=== PATIENT | male | born 1935 | race Caucasian/White ===

== ENCOUNTER 2022-11-09 16:44 | Emergency (ER) | payer OTHER ==
--- OUTSIDE RECORDS SUMMARY | 2022-11-09 16:50 | XMS REPORT | Continuity of Care Document ---
:1935 Author Organization [facility] t Address [address] [place] [address] Care Team Providers Name Role Phone Henrik Delgado Attending Clinician Only, Adc Test Attending Clinician Unavailable Karissa Moss MD Attending Clinician KARISSA MOSS Attending Clinician Unavailable Doctor Unassigned, [place] Attending Clinician Unavailable Payers Payer Name Policy Type Policy Number Effective Date Expiration Date S ource COVID VACCINE [id number] 2020-10-30 00:00:00 ADMIN / TESTING Problems Condition Condition Condition Status Onset Resolution Last Treating Co mments Source Name Details Category Date Date Treatment Clinician Date Amnesia Amnesia Problem Active 2022-08-16 Me moria (finding) (finding) 04:28:53 l Active [place] Problem 08/16/2022 [facility] Dementia Dementia Problem Active 2022-08-16 Memoria (disorder) (disorder) 04:28:53 l Active [place] Problem 08/16/2022 [facility] 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) Active Problem 08/16/2022 [facility] Foot-drop Foot-drop Problem Active 2022-08-16 Memoria (finding) (finding) 04:28:53 l Active [place] Problem 08/16/2022 [facility] Allergies, Adverse Reactions, Alerts Allergy Allergy Status Severity Reaction(s) Onset Inactive Treating Comm ents Source Name Type Date Date Clinician NO KNOWN Drug Active [facility] Social History Social Habit Start Date Stop Date Quantity Comments Source Exposure to Not sure [facility] SARS-CoV-2 (event) [facility] Sex Assigned At [birth year] [facility] 00:00:00 00:00:00 Center Smoking Status Start Date Stop Date Source Unknown if ever smoked [facility] Tobacco smoking status 2022-08-13 19:19:14 Mem[facility] [place] Medications Ordered Filled Start Stop Current Ordering Indication Dosage Frequency Signature Comments Components Source Medication Medication Date Date Medication? Clinician (SIG) Name Name donepezil Yes = 1 tab, Jan sri 10 mg oral 7-12 PO, l tablet 20:52: Bedtime, # July nn 00 90 tab, 2 Refill(s), Pharmacy: [facility], 180.34, cm, 04/21/22 15:32:00 CDT, Height, 93.182, kg, 04/21/22 15:32:00 CDT, Weight donepezil Yes = 1 tab, Jan sri 10 mg oral 7-12 PO, l tablet 20:52: Bedtime, # July nn 00 90 tab, 2 Refill(s), Pharmacy: [facility], 180.34, cm, 04/21/22 15:32:00 CDT, Height, 93.182, kg, 04/21/22 15:32:00 CDT, Weight donepezil Yes = 1 tab, Jan sri 10 mg oral 7-12 PO, l tablet 20:52: Bedtime, # July nn 00 90 tab, 2 Refill(s), Pharmacy: [facility], 180.34, cm, 04/21/22 15:32:00 CDT, Height, 93.182, kg, 04/21/22 15:32:00 CDT, Weight donepezil Yes = 1 tab, Jan sri 10 mg oral 7-12 PO, l tablet 20:52: Bedtime, # July nn 00 90 tab, 2 Refill(s), Pharmacy: [facility], 180.34, cm, 04/21/22 15:32:00 CDT, Height, 93.182, kg, 04/21/22 15:32:00 CDT, Weight donepezil 2021-0 Yes = 1 tab, Jan sri 10 mg oral 7-12 PO, l tablet 20:52: Bedtime, # July nn 00 90 tab, 2 Refill(s), Pharmacy: [facility], 180.34, cm, 04/21/22 15:32:00 CDT, Height, 93.182, kg, 04/21/22 15:32:00 CDT, Weight donepezil 2021-0 Yes = 1 tab, Jan sri 10 mg oral 7-12 PO, l tablet 20:52: Bedtime, # July nn 00 90 tab, 2 Refill(s), Pharmacy: [facility], 180.34, cm, 04/21/22 15:32:00 CDT, Height, 93.182, kg, 04/21/22 15:32:00 CDT, Weight donepezil 2021-0 Yes = 1 tab, Jan sri 10 mg oral 4-12 PO, l tablet 19:47: Bedtime, # July nn 00 90 tab, 2 Refill(s), Pharmacy: [id number], 180.34, cm, 01/20/22 14:13:00 CDT, Height, 91.364, kg, 01/20/22 14:13:00 CDT, Weight donepezil 2021-0 Yes = 1 tab, Jan sri 10 mg oral 4-12 PO, l tablet 19:47: Bedtime, # July nn 00 90 tab, 2 Refill(s), Pharmacy: [id number], 180.34, cm, 01/20/22 14:13:00 CDT, Height, 91.364, kg, 01/20/22 14:13:00 CDT, Weight donepezil 2021-0 Yes = 1 tab, Jan sri 10 mg oral 4-12 PO, l tablet 19:47: Bedtime, # July nn 00 90 tab, 2 Refill(s), Pharmacy: [id number], 180.34, cm, 01/20/22 14:13:00 CDT, Height, 91.364, kg, 01/20/22 14:13:00 CDT, Weight donepezil 2021-0 Yes = 1 tab, Jan sri 10 mg oral 4-12 PO, l tablet 19:47: Bedtime, # July nn 00 90 tab, 2 Refill(s), Pharmacy: [id number], 180.34, cm, 01/20/22 14:13:00 CDT, Height, 91.364, kg, 01/20/22 14:13:00 CDT, Weight donepezil 2021-0 Yes = 1 tab, Jan sri 10 mg oral 4-12 PO, l tablet 19:47: Bedtime, # July nn 00 90 tab, 2 Refill(s), Pharmacy: [id number], 180.34, cm, 01/20/22 14:13:00 CDT, Height, 91.364, kg, 01/20/22 14:13:00 CDT, Weight donepezil 2021-0 Yes = 1 tab, Jan sri 10 mg oral 4-12 PO, l tablet 19:47: Bedtime, # July nn 00 90 tab, 2 Refill(s), Pharmacy: [id number], 180.34, cm, 01/20/22 14:13:00 CDT, Height, 91.364, kg, 01/20/22 14:13:00 CDT, Weight allopurinol 2021-0 Yes 0 Memori a 100 mg oral 4-12 Refill(s) l tablet 19:36: [place] 00 losartan 25 2021-0 Yes TAKE 1 Jan sri mg oral 4-12 TABLET BY l tablet 19:36: MOUTH [place] 00 EVERY DAY allopurinol 2021-0 Yes 0 Memori a 100 mg oral 4-12 Refill(s) l tablet 19:36: [place] 00 losartan 25 2021-0 Yes TAKE 1 Jan sri mg oral 4-12 TABLET BY l tablet 19:36: MOUTH [place] 00 EVERY DAY allopurinol 2021-0 Yes 0 Memori a 100 mg oral 4-12 Refill(s) l tablet 19:36: [place] 00 losartan 25 0 Yes TAKE 1 Jan sri mg oral 4-12 TABLET BY l tablet 19:36: MOUTH EVERY DAY allopurinol 0 Yes 0 Memori a 100 mg oral 4-12 Refill(s) l tablet 19:36: [place] 00 losartan 25 0 Yes TAKE 1 Jan sri mg oral 4-12 TABLET BY l tablet 19:36: MOUTH EVERY DAY allopurinol 0 Yes 0 Memori a 100 mg oral 4-12 Refill(s) l tablet 19:36: [place] 00 losartan 25 0 Yes TAKE 1 Jan sri mg oral 4-12 TABLET BY l tablet 19:36: MOUTH EVERY DAY allopurinol 0 Yes 0 Memori a 100 mg oral 4-12 Refill(s) l tablet 19:36: [place] 00 losartan 25 0 Yes TAKE 1 Jan sri mg oral 4-12 TABLET BY l tablet 19:36: MOUTH EVERY DAY lisinopril 2021-0 Yes 2.5 mg = 1 M emoria 2.5 mg oral 1-12 tab, PO, l tablet 19:49: Daily, # 00 30 tab, 0 Refill(s) lisinopril 2021-0 Yes 2.5 mg = 1 M emoria 2.5 mg oral 1-12 tab, PO, l tablet 19:49: Daily, # 00 30 tab, 0 Refill(s) lisinopril 2021-0 Yes 2.5 mg = 1 M emoria 2.5 mg oral 1-12 tab, PO, l tablet 19:49: Daily, # 00 30 tab, 0 Refill(s) lisinopril 2021-0 Yes 2.5 mg = 1 M emoria 2.5 mg oral 1-12 tab, PO, l tablet 19:49: Daily, # 30 tab, 0 Refill(s) lisinopril 2021-0 Yes 2.5 mg = 1 M emoria 2.5 mg oral 1-12 tab, PO, l tablet 19:49: Daily, # 30 tab, 0 Refill(s) lisinopril 2021-0 Yes 2.5 mg = 1 M emoria 2.5 mg oral 1-12 tab, PO, l tablet 19:49: Daily, # [place] 00 30 tab, 0 Refill(s) donepezil 2020-0 Yes 10 mg = 1 Mem oria 10 mg oral 2-06 tab, PO, l tablet 18:21: Bedtime, # July nn 00 90 tab, 2 Refill(s), Pharmacy: [id number] donepezil 2020-0 Yes 10 mg = 1 Mem oria 10 mg oral 2-06 tab, PO, l tablet 18:21: Bedtime, # July nn 00 90 tab, 2 Refill(s), Pharmacy: [id number] donepezil 2020-0 Yes 10 mg = 1 Mem oria 10 mg oral 2-06 tab, PO, l tablet 18:21: Bedtime, # July nn 00 90 tab, 2 Refill(s), Pharmacy: [facility] #[id number] donepezil 2020-0 Yes 10 mg = 1 Mem oria 10 mg oral 2-06 tab, PO, l tablet 18:21: Bedtime, # July nn 00 90 tab, 2 Refill(s), Pharmacy: [id number] donepezil 2020-0 Yes 10 mg = 1 Mem oria 10 mg oral 2-06 tab, PO, l tablet 18:21: Bedtime, # July nn 00 90 tab, 2 Refill(s), Pharmacy: [id number] donepezil 2020-0 Yes 10 mg = 1 Mem oria 10 mg oral 2-06 tab, PO, l tablet 18:21: Bedtime, # July nn 00 90 tab, 2 Refill(s), Pharmacy: [id number] aspirin 81 2018-0 Yes 81 mg = 1 Me moria mg tablet, 4-24 tab, PO, l enteric 14:38: Daily, # Grey n coated 00 90 tab, 3 Refill(s) metoprolol 2018-0 Yes 25 mg = 1 Me moria 25 mg oral 4-24 tab, PO, l tablet, 14:38: BID, # 30 July nn extended 00 tab, 0 release Refill(s) metFORMIN 2018-0 Yes 500 mg = 1 Me moria 500 mg oral 4-24 tab, PO, l tablet 14:38: Daily, 0 [place] 00 Refill(s) atorvastati Yes See Memori a n 40 mg 4-24 Instructio l oral tablet 14:38: ns, 1/2 Her albright 00 tab PO Bedtime, 0 Refill(s) citalopram 2017-0 Yes See Memoria 20 mg oral 4-24 Instructio l tablet 14:38: ns, 1/2 [place] 00 tab PO Daily, 0 Refill(s) tamsulosin Yes 0.4 mg = 1 M emoria 0.4 mg oral 4-24 cap, PO, l capsule 14:38: Daily, # Grey n 00 30 cap, 0 Refill(s) finasteride Yes 5 mg = 1 Me moria 5 mg oral 4-24 tab, PO, l tablet 14:38: Daily, # [place] 00 30 tab, 0 Refill(s) aspirin 81 2018-0 Yes 81 mg = 1 Me moria mg tablet, 4-24 tab, PO, l enteric 14:38: Daily, # Grey n coated 00 90 tab, 3 Refill(s) metoprolol Yes 25 mg = 1 Me moria 25 mg oral 4-24 tab, PO, l tablet, 14:38: BID, # 30 July nn extended 00 tab, 0 release Refill(s) metFORMIN Yes 500 mg = 1 Me moria 500 mg oral 4-24 tab, PO, l tablet 14:38: Daily, 0 [place] 00 Refill(s) atorvastati 2017- Yes See Memori a n 40 mg 4-24 Instructio l oral tablet 14:38: ns, 1/2 Her albright 00 tab PO Bedtime, 0 Refill(s) citalopram 2017- Yes See Memoria 20 mg oral 4-24 Instructio l tablet 14:38: ns, 1/2 [place] 00 tab PO Daily, 0 Refill(s) tamsulosin 2017-0 Yes 0.4 mg = 1 M emoria 0.4 mg oral 4-24 cap, PO, l capsule 14:38: Daily, # Grey n 00 30 cap, 0 Refill(s) finasteride 2017-0 Yes 5 mg = 1 Me moria 5 mg oral 4-24 tab, PO, l tablet 14:38: Daily, # [place] 00 30 tab, 0 Refill(s) aspirin 81 2018 Yes 81 mg = 1 Me moria mg tablet, 4-24 tab, PO, l enteric 14:38: Daily, # Grey n coated 00 90 tab, 3 Refill(s) metoprolol Yes 25 mg = 1 Me moria 25 mg oral 4-24 tab, PO, l tablet, 14:38: BID, # 30 July nn extended 00 tab, 0 release Refill(s) metFORMIN Yes 500 mg = 1 Me moria 500 mg oral 4-24 tab, PO, l tablet 14:38: Daily, 0 [place] 00 Refill(s) atorvastati Yes See Memori a n 40 mg 4-24 Instructio l oral tablet 14:38: ns, 1/2 Her albright 00 tab PO Bedtime, 0 Refill(s) citalopram Yes See Memoria 20 mg oral 4-24 Instructio l tablet 14:38: ns, 10/12 [place] 00 tab PO Daily, 0 Refill(s) tamsulosin Yes 0.4 mg = 1 M emoria 0.4 mg oral 4-24 cap, PO, l capsule 14:38: Daily, # Grey n 00 30 cap, 0 Refill(s) finasteride Yes 5 mg = 1 Me moria 5 mg oral 4-24 tab, PO, l tablet 14:38: Daily, # [place] 00 30 tab, 0 Refill(s) aspirin 81 2018 Yes 81 mg = 1 Me moria mg tablet, 4-24 tab, PO, l enteric 14:38: Daily, # Grey n coated 00 90 tab, 3 Refill(s) metoprolol Yes 25 mg = 1 Me moria 25 mg oral 4-24 tab, PO, l tablet, 14:38: BID, # 30 July nn extended 00 tab, 0 release Refill(s) metFORMIN Yes 500 mg = 1 Me moria 500 mg oral 4-24 tab, PO, l tablet 14:38: Daily, 0 [place] 00 Refill(s) atorvastati Yes See Memori a n 40 mg 4-24 Instructio l oral tablet 14:38: ns, 1/2 Her albright 00 tab PO Bedtime, 0 Refill(s) citalopram 2017-0 Yes See Memoria 20 mg oral 4-24 Instructio l tablet 14:38: ns, 1/2 [place] 00 tab PO Daily, 0 Refill(s) tamsulosin 2017- Yes 0.4 mg = 1 M emoria 0.4 mg oral 4-24 cap, PO, l capsule 14:38: Daily, # Grey n 00 30 cap, 0 Refill(s) finasteride Yes 5 mg = 1 Me moria 5 mg oral 4-24 tab, PO, l tablet 14:38: Daily, # [place] 00 30 tab, 0 Refill(s) aspirin 81 0 Yes 81 mg = 1 Me moria mg tablet, 4-24 tab, PO, l enteric 14:38: Daily, # Grey n coated 00 90 tab, 3 Refill(s) metoprolol Yes 25 mg = 1 Me moria 25 mg oral 4-24 tab, PO, l tablet, 14:38: BID, # 30 July nn extended 00 tab, 0 release Refill(s) metFORMIN Yes 500 mg = 1 Me moria 500 mg oral 4-24 tab, PO, l tablet 14:38: Daily, 0 [place] 00 Refill(s) atorvastati 0 Yes See Memori a n 40 mg 4-24 Instructio l oral tablet 14:38: ns, 1/2 Her albright 00 tab PO Bedtime, 0 Refill(s) citalopram 2017-0 Yes See Memoria 20 mg oral 4-24 Instructio l tablet 14:38: ns, 1/2 [place] 00 tab PO Daily, 0 Refill(s) tamsulosin 2018-0 Yes 0.4 mg = 1 M emoria 0.4 mg oral 4-24 cap, PO, l capsule 14:38: Daily, # Grey n 00 30 cap, 0 Refill(s) finasteride 2017- Yes 5 mg = 1 Me moria 5 mg oral 4-24 tab, PO, l tablet 14:38: Daily, # [place] 00 30 tab, 0 Refill(s) aspirin 81 0 Yes 81 mg = 1 Me moria mg tablet, 4-24 tab, PO, l enteric 14:38: Daily, # Grey n coated 00 90 tab, 3 Refill(s) metoprolol Yes 25 mg = 1 Me moria 25 mg oral 4-24 tab, PO, l tablet, 14:38: BID, # 30 July nn extended 00 tab, 0 release Refill(s) metFORMIN Yes 500 mg = 1 Me moria 500 mg oral 4-24 tab, PO, l tablet 14:38: Daily, 0 [place] 00 Refill(s) atorvastati Yes See Memori a n 40 mg 4-24 Instructio l oral tablet 14:38: ns, 2 Her albright 00 tab PO Bedtime, 0 Refill(s) citalopram Yes See Memoria 20 mg oral 4-24 Instructio l tablet 14:38: ns, 10/12 [place] 00 tab PO Daily, 0 Refill(s) tamsulosin Yes 0.4 mg = 1 M emoria 0.4 mg oral 4-24 cap, PO, l capsule 14:38: Daily, # Grey n 00 30 cap, 0 Refill(s) finasteride Yes 5 mg = 1 Me moria 5 mg oral 4-24 tab, PO, l tablet 14:38: Daily, # [place] 00 30 tab, 0 Refill(s) Immunizations Ordered Immunization Filled Immunization Date Status Commen ts Source Name Name Covid-19 Vaccine 2020-11-[address] [facility] MRNA (PF) 12yr+ 00:00:00 Medical C enter (Pfizer/BioNTech)(IM M601) Covid-19 Vaccine 2020-11-[address] [facility] MRNA (PF) 12yr+ 00:00:00 Medical C enter (Pfizer/BioNTech)(IM M601) Covid-19 Vaccine 2020-11-[address] [facility] MRNA (PF) 12yr+ 00:00:00 Medical C enter (Pfizer/BioNTech)(IM M601) Covid-19 Vaccine 2020-11-[address] [facility] MRNA (PF) 12yr+ 00:00:00 Medical C enter (Pfizer/BioNTech)(IM M601) Covid-19 Vaccine 2020-11-[address] [facility] MRNA (PF) 12yr+ 00:00:00 Medical C enter (Pfizer/BioNTech)(IM M601) Covid-19 Vaccine 2020-11-[address] [facility] MRNA (PF) 12yr+ 00:00:00 Medical C enter (Pfizer/BioNTech)(IM M601) Covid-19 Vaccine 2020-11-[address] [facility] M[facility] (PF) 12yr+ 00:00:00 Medical C enter (Pfizer/BioNTech)(IM M601) Covid-19 Vaccine 2020-10-[address] [facility] MRNA (PF) 12yr+ 00:00:00 Medical C enter (Pfizer/BioNTech)(IM M601) Covid-19 Vaccine 2020-10-[address] [facility] MRNA (PF) 12yr+ 00:00:00 Medical C enter (Pfizer/BioNTech)(IM M601) Covid-19 Vaccine 2020-10-[address] [facility] M[facility] (PF) 12yr+ 00:00:00 Medical C enter (Pfizer/BioNTech)(IM M601) Covid-19 Vaccine 2020-10-[address] [facility] MRNA (PF) 12yr+ 00:00:00 Medical C enter (Pfizer/BioNTech)(IM M601) Covid-19 Vaccine 2020-10-[address] [facility] M[facility] (PF) 12yr+ 00:00:00 Medical C enter (Pfizer/BioNTech)(IM M601) Covid-19 Vaccine 2020-10-[address] [facility] M[facility] (PF) 12yr+ 00:00:00 Medical C enter (Pfizer/BioNTech)(IM M601) Covid-19 Vaccine 2020-10-[address] [facility] (PF) 12yr+ 00:00:00 Medical C enter (Pfizer/BioNTech)(IM M601) Vital Signs Vital Name Observation Time Observation Value Comments Source Systolic (mm Hg) 2022-08-13 19:18:00 Jan rial [place] Diastolic (mm Hg) 2022-08-13 19:18:00 Mem orial [place] Heart Rate 2022-08-13 19:18:00 [facility] [place] Height 2022-08-13 19:18:00 5 [ft_i] [facility] [place] Weight 2022-08-13 19:18:00 [facility] [place] BMI Calculated 2022-08-13 19:18:00 Memori al [place] Systolic (mm Hg) 2022-04-21 20:18:00 Jan rial [place] Diastolic (mm Hg) 2022-04-21 20:18:00 Mem orial [place] Heart Rate 2022-04-21 20:18:00 [facility] [place] Respitory Rate 2022-04-21 20:18:00 [facility] [place] Height 2022-04-21 20:18:00 180.34 cm [facility] [place] Weight 2022-04-21 20:18:00 [facility] [place] BMI Calculated 2022-04-21 20:18:00 Mem[facility] [place] Systolic (mm Hg) 2022-01-20 19:13:00 Jan rial [place] Diastolic (mm Hg) 2022-01-20 19:13:00 Mem orial [place] Heart Rate 2022-01-20 19:13:00 [facility] [place] Respitory Rate 2022-01-20 19:13:00 Memori al [place] Height 2022-01-20 19:13:00 180.34 cm [facility] [place] Weight 2022-01-20 19:13:00 [facility] [place] BMI Calculated 2022-01-20 19:13:00 [facility] [place] Systolic (mm Hg) 2021-10-22 19:27:00 Jan rial [place] Diastolic (mm Hg) 2021-10-22 19:27:00 Mem orial [place] Heart Rate 2021-10-22 19:27:00 [facility] [place] Respitory Rate 2021-10-22 19:27:00 [facility] [place] Weight 2021-10-22 19:27:00 [facility] [place] Systolic (mm Hg) 2021-06-18 19:41:00 Jan rial [place] Diastolic (mm Hg) 2021-06-18 19:41:00 Mem orial [place] Heart Rate 2021-06-18 19:41:00 [facility] [place] Respitory Rate 2021-06-18 19:41:00 [facility] [place] Height 2021-06-18 19:41:00 180.34 cm [facility] [place] Weight 2021-06-18 19:41:00 [facility] [place] BMI Calculated 2021-06-18 19:41:00 [facility] [place] Systolic (mm Hg) 2021-03-18 18:44:00 Jan rial [place] Diastolic (mm Hg) 2021-03-18 18:44:00 Mem orial [place] Heart Rate 2021-03-18 18:44:00 [facility] [place] Respitory Rate 2021-03-18 18:44:00 Mem[facility] [place] Height 2021-03-18 18:44:00 180.34 cm [facility] [place] Weight 2021-03-18 18:44:00 [facility] [place] BMI Calculated 2021-03-18 18:44:00 [facility] [place] Systolic (mm Hg) 2020-09-17 19:44:00 Jan rial [place] Diastolic (mm Hg) 2020-09-17 19:44:00 Mem orial [place] Heart Rate 2020-09-17 19:44:00 [facility] [place] Respitory Rate 2020-09-17 19:44:00 Mem[facility] al [place] Height 2020-09-17 19:44:00 182.88 cm [facility] [place] Weight 2020-09-17 19:44:00 [facility] [place] BMI Calculated 2020-09-17 19:44:00 [facility] al [place] Systolic (mm Hg) 2020-06-18 19:19:00 Jan rial [place] Diastolic (mm Hg) 2020-06-18 19:19:00 Mem orial [place] Heart Rate 2020-06-18 19:19:00 [facility] [place] Respitory Rate 2020-06-18 19:19:00 [facility] al [place] Height 2020-06-18 19:19:00 180.34 cm [facility] [place] Weight 2020-06-18 19:19:00 [facility] [place] BMI Calculated 2020-06-18 19:19:00 [facility] [place] Systolic (mm Hg) 2019-11-16 17:38:00 Jan rial [place] Diastolic (mm Hg) 2019-11-16 17:38:00 Mem orial [place] Heart Rate 2019-11-16 17:38:00 [facility] [place] Respitory Rate 2019-11-16 17:38:00 Memori al [place] Height 2019-11-16 17:38:00 182.88 cm [facility] [place] Weight 2019-11-16 17:38:00 Seamus Coker BMI Calculated 2019-11-16 17:38:00 Kaitlin rosa [place] Weight 2018-07-29 15:28:00 Seamus Coker Height 2018-07-29 15:28:00 180.34 cm [facility] [place] Heart Rate 2018-07-29 15:28:00 Seamus Amosann Systolic (mm Hg) 2018-07-29 15:28:00 Jan Amosann Diastolic (mm Hg) 2018-07-29 15:28:00 Annmarie Coker BMI Calculated 2018-07-29 15:28:00 Kaitlin moe [place] Procedures Procedure Date / Time Performed Performing Clinician Sour e CONSENT/REFUSAL FOR 2021-03-31 15:54:31 Doctor Unassigned, No Un [facility] DIAGNOSIS AND Name Medical [facility] TREATMENT Plan of Care Planned Activity Planned Date Details Comments Source Future Scheduled 2022-10-11 FALLS RISK SCREENING [facility] Test 00:00:00 [code = FALLS RISK Medical C enter SCREENING] Future Scheduled 2022-10-[address] [facility] Test 00:00:00 (12+) [code = Medical Center DEPRESSION SCREENING (12+)] Future Scheduled 2022-10-[address] [facility] Test 00:00:00 (12+) [code = Medical Center DEPRESSION SCREENING (12+)] Future Scheduled 2022-10-11 FALLS RISK SCREENING [facility] Test 00:00:00 [code = FALLS RISK Medical C enter SCREENING] Future Scheduled 2022-10-[address] [facility] Test 00:00:00 (12+) [code = Medical Center DEPRESSION SCREENING (12+)] Future Scheduled 2022-10-11 FALLS RISK SCREENING [facility] 00:00:00 [code = FALLS RISK Medical C enter SCREENING] Future Scheduled 2022-06-11 INFLUENZA VACCINE (#1) [facility] 00:00:00 [code = INFLUENZA Medical Ce nter VACCINE (#1)] Future Scheduled 2022-06-11 INFLUENZA VACCINE (#1) [facility] 00:00:00 [code = INFLUENZA Medical Ce nter VACCINE (#1)] Future Scheduled 2022-06-11 INFLUENZA VACCINE (#1) [facility] 00:00:00 [code = INFLUENZA Medical Ce nter VACCINE (#1)] Future Scheduled 2022-06-11 INFLUENZA VACCINE (#1) [facility] 00:00:00 [code = INFLUENZA Medical Ce nter VACCINE (#1)] Future Scheduled 2022-06-11 INFLUENZA VACCINE (#1) [facility] 00:00:00 [code = INFLUENZA Medical Ce nter VACCINE (#1)] Future Scheduled 2022-06-11 INFLUENZA VACCINE (#1) [facility] 00:00:00 [code = INFLUENZA Medical Ce nter VACCINE (#1)] Future Scheduled 2022-06-11 INFLUENZA VACCINE (#1) [facility] 00:00:00 [code = INFLUENZA Medical Ce nter VACCINE (#1)] Future Scheduled 2021-10-[address] [facility] Test 00:00:00 (12+) [code = Medical Center DEPRESSION SCREENING (12+)] Future Scheduled 2021-10-11 FALLS RISK SCREENING [facility] Test 00:00:00 [code = FALLS RISK Medical C enter SCREENING] Future Scheduled 2021-10-[address] [facility] Test 00:00:00 (12+) [code = Medical Center DEPRESSION SCREENING (12+)] Future Scheduled 2021-10-11 FALLS RISK SCREENING [facility] Test 00:00:00 [code = FALLS RISK Medical C enter SCREENING] Future Scheduled 2021-10-[address] [facility] Test 00:00:00 (12+) [code = Medical Center DEPRESSION SCREENING (12+)] Future Scheduled 2021-10-11 FALLS RISK SCREENING [facility] 00:00:00 [code = FALLS RISK Medical C enter SCREENING] Future Scheduled 2021-10-[address] [facility] Test 00:00:00 (12+) [code = Medical Center DEPRESSION SCREENING (12+)] Future Scheduled 2021-10-11 FALLS RISK SCREENING [facility] 00:00:00 [code = FALLS RISK Medical C enter SCREENING] Future Scheduled 2021-04-19 COVID-19 VACCINE (3 - [facility]00 Booster for Pfizer Medical C enter series) [code = COVID-19 VACCINE (3 - Booster for Pfizer series)] Future Scheduled 2021-04-19 COVID-19 VACCINE (3 - [facility] 00:00:00 Booster for Pfizer Medical C enter series) [code = COVID-19 VACCINE (3 - Booster for Pfizer series)] Future Scheduled 2021-04-19 COVID-19 VACCINE (3 - [facility] 00:00:00 Booster for Pfizer Medical C enter series) [code = COVID-19 VACCINE (3 - Booster for Pfizer series)] Future Scheduled 2021-04-19 COVID-19 VACCINE (3 - [facility] 00:00:00 Booster for Pfizer Medical C enter series) [code = COVID-19 VACCINE (3 - Booster for Pfizer series)] Future Scheduled 2021-04-19 COVID-19 VACCINE (3 - [facility] 00:00:00 Booster for Pfizer Medical C enter series) [code = COVID-19 VACCINE (3 - Booster for Pfizer series)] Future Scheduled 2021-04-19 COVID-19 VACCINE (3 - [facility] 00:00:00 Booster for Pfizer Medical C enter series) [code = COVID-19 VACCINE (3 - Booster for Pfizer series)] Future Scheduled 2021-04-19 COVID-19 VACCINE (3 - [facility] 00:00:00 Booster for Pfizer Medical C enter series) [code = COVID-19 VACCINE (3 - Booster for Pfizer series)] Future Scheduled 2002 PNEUMOCOCCAL 65+ [facility] 00:00:00 (1 - PCV) [code = Medical Ce nter PNEUMOCOCCAL 65+ YRS (1 - PCV)] Future Scheduled 2002 PNEUMOCOCCAL 65+ Y[facility] 00:00:00 (1 - PCV) [code = Medical Ce nter PNEUMOCOCCAL 65+ YRS (1 - PCV)] Future Scheduled 2002 PNEUMOCOCCAL 65+ YRS [facility] 00:00:00 (1 - PCV) [code = Medical Ce nter PNEUMOCOCCAL 65+ YRS (1 - PCV)] Future Scheduled 2002 PNEUMOCOCCAL 65+ YRS [facility] 00:00:00 (1 - PCV) [code = Medical Ce nter PNEUMOCOCCAL 65+ YRS (1 - PCV)] Future Scheduled 2002 PNEUMOCOCCAL 65+ YRS [facility] 00:00:00 (1 - PCV) [code = Medical Ce nter PNEUMOCOCCAL 65+ YRS (1 - PCV)] Future Scheduled 2002 PNEUMOCOCCAL 65+ Y[facility] 00:00:00 (1 - PCV) [code = Medical Ce nter PNEUMOCOCCAL 65+ YRS (1 - PCV)] Future Scheduled 2002 PNEUMOCOCCAL 65+ Y[facility] 00:00:00 (1 - PCV) [code = Medical Ce nter PNEUMOCOCCAL 65+ YRS (1 - PCV)] Future Scheduled 1987 SHINGLES VACCINES ([address] [facility] 00:00:00 of 2) [code = [facility] VACC[facility]ES (1 of 2)] Future Scheduled 1987 SHINGLES VACCINES ([address] [facility] 00:00:00 of 2) [code = [facility] VACCINES (1 of 2)] Future Scheduled 1987 SHINGLES VACCINES ([address] [facility] Test 00:00:00 of 2) [code [facility] (1 of 2)] Future Scheduled 1987 SHINGLES VACCINES ([address] [facility] Test 00:00:00 of 2) [code = [facility] VACCINES (1 of 2)] Future Scheduled 1987 SHINGLES VACCINES ([address] [facility] Test 00:00:00 of 2) [code = [facility] VACCINES (1 of 2)] Future Scheduled 1987 SHINGLES VACCINES ([address] [facility] Test 00:00:00 of 2) [code = [facility] VACCINES (1 of 2)] Future Scheduled 1987 SHINGLES VACCINES ([address] [facility] Test 00:00:00 of 2) [code = [facility] VACCINES (1 of 2)] Future Scheduled 1954-02-29 DTAP/TDAP/TD VACCINES [facility] Test 00:00:00 (1 - Tdap) [code = Medical C enter DTAP/TDAP/TD VACCINES (1 - Tdap)] Future Scheduled 1954-02-29 DTAP/TDAP/TD VACCINES [facility] Test 00:00:00 (1 - Tdap) [code = Medical C enter DTAP/TDAP/TD VACCINES (1 - Tdap)] Future Scheduled 1954-02-29 DTAP/TDAP/TD VACCINES [facility] Test 00:00:00 (1 - Tdap) [code = Medical C enter DTAP/TDAP/TD VACCINES (1 - Tdap)] Future Scheduled 1956-02-29 DTAP/TDAP/TD VACCINES [facility] Test 00:00:00 (1 - Tdap) [code = Medical C enter DTAP/TDAP/TD VACCINES (1 - Tdap)] Future Scheduled 1956-02-29 DTAP/TDAP/TD VACCINES [facility] Test 00:00:00 (1 - Tdap) [code = Medical C enter DTAP/TDAP/TD VACCINES (1 - Tdap)] Future Scheduled 1956-02-29 DTAP/TDAP/TD VACCINES [facility] Test 00:00:00 (1 - Tdap) [code = Medical C enter DTAP/TDAP/TD VACCINES (1 - Tdap)] Future Scheduled 1956-02-29 DTAP/TDAP/TD VACCINES [facility] Test 00:00:00 (1 - Tdap) [code = Medical C enter DTAP/TDAP/TD VACCINES (1 - Tdap)] Future Scheduled [address] [facility] Test 00:00:00 [facility] (12+) [code = Tobacco Cessation Counseling and Screening (12+)] Future Scheduled [address] [facility] Test 00:00:00 [facility] Screening (12+) [code = Tobacco Cessation Counseling and Screening (12+)] Future Scheduled [address] [facility] Test 00:00:00 [facility] Screening (12+) [code = Tobacco Cessation Counseling and Screening (12+)] Future Scheduled [address] [facility] Test 00:00:00 [facility] Screening (12+) [code = Tobacco Cessation Counseling and Screening (12+)] Future Scheduled [address] [facility] Test 00:00:00 [facility] Screening (12+) [code = Tobacco Cessation Counseling and Screening (12+)] Future Scheduled [address] [facility] Test 00:00:00 [facility] Screening (12+) [code = Tobacco Cessation Counseling and Screening (12+)] Encounters Start End Encounter Admission Attending Care Care Encounter Source Date/Time Date/Time Type Type Clinicians Facility Department ID 2021-11-05 Outpatient [facility] [id number] Common 13:37:54 [id number] [facility] 2021-11-05 Outpatient [facility] [id number] Common 13:08:15 [id number] [facility] 2023-02-17 2023-02-17 Outpatient [facility] MHIE [id number] Memoria 13:45:00 13:45:00 16 wayne [place] 2023-02-17 2023-02-17 Outpatient MHIE MHIE [id number] Memoria 13:45:00 13:45:00 16 wayne [place] 2022-08-13 2022-08-14 Outpatient nullFlavo MNA [id number] Memoria 19:15:00 04:59:59 r Neurology 15 wayne Negron [place] 2022-08-13 2022-08-14 Outpatient nullFlavo MNA [id number] Memoria 19:15:00 04:59:59 r Neurology 15 wayne Negron [place] 2022-08-13 2022-08-13 Outpatient LILO Delgado MISCHER [id number] 14:15:00 23:59:59 Henrik 15 Carlos A 2022-08-13 2022-08-13 Outpatient MHIE MHIE [id number] Memoria 14:15:00 14:15:00 15 wayne John Paul 2022-04-21 2022-04-22 Outpatient nullFlavo MNA [id number] Memoria 19:45:00 04:59:59 r Neurology 14 wayne [place] 2022-04-21 2022-04-22 Outpatient nullFlavo MNA [id number] Memoria 19:45:00 04:59:59 r Neurology 14 wayne [place] John Paul 2022-04-21 2022-04-21 Outpatient DEAN DelgadoSCHER MHMISCHER [id number] 14:45:00 23:59:59 Henrik 14 Carlos A 2022-04-21 2022-04-21 Outpatient MHIE IE [id number] Memoria 14:45:00 14:45:00 14 wayne Coker 2022-01-20 2022-01-21 Outpatient nullFlavo MNA [id number] Memoria 19:15:00 04:59:59 r Neurology 13 l Jamil Coker 2022-01-20 2022-01-21 Outpatient nullFlavo MNA [id number] Memoria 19:15:00 04:59:59 r Neurology 13 wayne Coker 2022-01-20 2022-01-20 [id number] 14:15:00 23:59:59 Henrik 13 Carlos A 2022-01-20 2022-01-20 Outpatient MHIE IE [id number] Memoria 14:15:00 14:15:00 13 wayne Coker 2021-10-22 2021-10-23 Outpatient nullFlavo MNA [id number] Memoria 19:30:00 05:59:59 r Neurology 12 wayne Coker 2021-10-22 2021-10-23 Outpatient nullFlavo MNA [id number] Memoria 19:30:00 05:59:59 r Neurology 12 wayne Coker 2021-10-22 2021-10-22 [id number] 13:30:00 23:59:59 Henrik 12 Carlos A 2021-10-22 2021-10-22 Outpatient MHIE IE [id number] Memoria 13:30:00 13:30:00 12 wayne Coker 2021-06-18 2021-06-19 Outpatient nullFlavo MNA [id number] Memoria 19:00:00 04:59:59 r Neurology 11 wayne Coker 2021-06-18 2021-06-19 Outpatient nullFlavo MNA [id number] Memoria 19:00:00 04:59:59 r Neurology 11 wayne Coker 2021-06-18 2021-06-18 [facility] [id number] 14:00:00 23:59:59 Henrik 11 Carlos A 2021-06-18 2021-06-18 Outpatient MHIE MHIE [id number] Memoria 14:00:00 14:00:00 11 l John Paul 2021-03-31 2021-03-31 Laboratory Only, Adc Test [facility] [id number] Univers 10:57:39 11:12:39 Only Karissa Moss [id number] [facility]y of [place] [id number] [facility] [id number] [facility] [address] 2021-03-31 2021-03-31 Outpatient R AJAY [facility] [id number] Univers 10:30:00 10:30:00 KARISSA [facility]olis [facility] 2021-03-31 2021-03-31 Orders Doctor LAW [id number] Univers 00:00:00 00:00:00 Only Unassigned, PARKER [id number] ity of [place] [facility] [id number] [facility] [id number] [facility] [address] 2021-03-18 2021-03-19 Outpatient nullFlavo MNA [id number] Memoria 18:30:00 04:59:59 r Neurology 10 l Jamil Coker 2021-03-18 2021-03-19 Outpatient nullFlavo MNA [id number] Memoria 18:30:00 04:59:59 r Neurology 10 l Jamil Coker 2021-03-18 2021-03-18 [id number] 13:30:00 23:59:59 Henrik Eladia Carlos A 2021-03-18 2021-03-18 Outpatient MHIE IE [id number] Memoria 13:30:00 13:30:00 10 l John Paul 2020-11-20 2020-11-20 Outpatient [facility] [id number] SLE 00:00:00 00:00:00 2020-10-30 2020-10-30 Outpatient [facility] [id number] SLE 00:00:00 00:00:00 2020-09-17 2020-09-18 Outpatient nullFlavo MNA [id number] Memoria 19:30:00 05:59:59 r Neurology 09 l [place] 2020-09-17 2020-09-18 Outpatient nullFlavo MNA [id number] Memoria 19:30:00 05:59:59 r Neurology 09 l Jamil Coker 2020-09-17 2020-09-17 [facility] [id number] 13:30:00 23:59:59 Henrik 09 Carlos A 2020-09-17 2020-09-17 Outpatient MHIE IE [id number] Memoria 13:30:00 13:30:00 09 l John Paul 2020-06-18 2020-06-19 Outpatient nullFlavo MNA [id number] Memoria 18:45:00 04:59:59 r Neurology 08 l Jamil Coker 2020-06-18 2020-06-19 Outpatient nullFlavo MNA [id number] Memoria 18:45:00 04:59:59 r Neurology 08 l Jamil Coker 2020-06-18 2020-06-18 Outpatient Sandy [facility] [id number] 13:45:00 23:59:59 Henrik 08 Carlos A 2020-06-18 2020-06-18 Ambulatory nullFlavo MNA [id number] Memoria 18:45:00 18:45:00 Pre-Reg r Neurology 07 l Jamil Coker 2020-06-18 2020-06-18 Ambulatory nullFlavo MNA [id number] Memoria 18:45:00 18:45:00 Pre-Reg r Neurology 07 l Jamil Coker 2020-06-18 2020-06-18 Outpatient MHIE IE [id number] Memoria 13:45:00 13:45:00 07 l [place] 2020-06-18 2020-06-18 Outpatient MHIE IE [id number] Memoria 13:45:00 13:45:00 08 wayne Coker 2020-06-18 2020-06-18 Outpatient Sandy [facility] [id number] 13:45:00 13:45:00 Henrik 07 Carlos A 2020-02-14 2020-02-15 Outpatient nullFlavo MNA [id number] Memoria 19:00:00 04:59:59 r Neurology 06 l Jamil Coker 2020-02-14 2020-02-15 Outpatient nullFlavo MNA [id number] Memoria 19:00:00 04:59:59 r Neurology 06 l Jamil Coker 2020-02-14 2020-02-14 Outpatient Sandy [facility] [id number] 14:00:00 23:59:59 Henrik Kris Carlos A 2020-02-14 2020-02-14 Ambulatory nullFlavo MNA [id number] Memoria 19:00:00 19:00:00 Pre-Reg r Neurology 05 l Jamil John Paul 2020-02-14 2020-02-14 Ambulatory nullFlavo MNA [id number] Memoria 19:00:00 19:00:00 Pre-Reg r Neurology 05 l Jamil John Paul 2020-02-14 2020-02-14 Outpatient MHIE MHIE [id number] Memoria 14:00:00 14:00:00 06 l [place] 2020-02-14 2020-02-14 Outpatient MHIE MHIE [id number] Memoria 14:00:00 14:00:00 05 wayne [place] 2020-02-14 2020-02-14 Outpatient Sandy [facility] [id number] 14:00:00 14:00:00 Henrik Zeinab Carlos A 2019-12-18 2019-12-20 Outside nullFlavo MNA [id number] Memoria 13:54:45 04:59:59 Medical r Neurology 00 l Records Jamil Coker 2019-12-18 2019-12-20 Outside nullFlavo MNA [id number] Memoria 13:54:45 04:59:59 Medical r Neurology 00 l Records Jamil Amosann 2019-12-18 2019-12-19 [id number] 08:54:45 23:59:59 2019-11-16 2019-11-17 Outpatient nullFlavo MNA [id number] Memoria 17:30:00 05:59:59 r Neurology 04 l Jamil John Paul 2019-11-16 2019-11-17 Outpatient nullFlavo MNA [id number] Memoria 17:30:00 05:59:59 r Neurology 04 l Jamil John Paul 2019-11-16 2019-11-16 Outpatient LILO Delgado [facility] [id number] 11:30:00 23:59:59 Henrik 04 Carlos A 2019-11-16 2019-11-16 Outpatient MHIE MHIE [id number] Memoria 11:30:00 11:30:00 04 wayne Coker 2018-07-29 2018-07-30 Outpatient nullFlavo MNA [id number] Memoria 15:15:00 04:59:59 r Neurology 03 l Jamil Coker 2018-07-29 2018-07-30 Outpatient nullFlavo MNA [id number] Memoria 15:15:00 04:59:59 r Neurology 03 l Jamil Coker 2018-07-29 2018-07-29 [facility] [id number] 10:15:00 23:59:59 Henrik Mitzy Strauss 2018-07-29 2018-07-29 Outpatient MHIE MHIE [id number] Memoria 10:15:00 10:15:00 03 wayne John Paul 2018-05-17 2018-05-17 Outpatient MHIE MHIE [id number] Memoria 10:30:00 10:30:00 02 wayne Coker 2018-05-17 2018-05-17 Outpatient MHIE MHIE [id number] Memoria 10:30:00 10:30:00 02 wayne Coker 2018-03-15 2018-03-15 Outpatient MHIE MHIE [id number] Memoria 09:30:00 09:30:00 01 wayne Coker 2018-03-15 2018-03-15 Outpatient MHIE MHIE [id number] Memoria 09:30:00 09:30:00 01 wayne Coker 2018-02-01 2018-02-01 Outpatient MHIE MHIE [id number] Memoria 09:45:00 09:45:00 00 wayne Coker 2018-02-01 2018-02-01 Outpatient MHIE MHIE [id number] Memoria 09:45:00 09:45:00 00 wayne Coker Results This patient has no known results.
[2022-11-09 17:12] LABS: Absolute Lymphocytes (CBC) 2.4 K/uL (0.7-4.9); Hematocrit 39.1 % (39.6-49.0); Lymphocytes % 29.4 % (15.3-44.8); MCV 95.2 fL (80-100); MPV 7.4 fL (7.6-11.3); RBC Red Blood Cell Count 4.11 M/uL (4.33-5.43)
[2022-11-09 17:22] LABS: Protime INR 1.01
[2022-11-09 17:30] LABS: Albumin 3.3 g/dL (3.4-5.0); Bilirubin Direct 0.3 mg/dL (0-0.2); Bilirubin Total 1.2 mg/dL (0.2-1.0); Potassium 3.7 mmol/L (3.5-5.1); Protein, Total 6.5 g/dL (6.4-8.2); Troponin High Sensitivity 12.7 pg/mL (<58.9)
--- NOTE | 2022-11-09 18:14 | RAD REPORT ---
EXAM DESCRIPTION: RAD - Chest Single View - 11/09/2022 6:07 pm CLINICAL HISTORY: CHEST PAIN COMPARISON: Chest Pa And Lat (2 Views) dated 10/23/2021; Chest Single View dated 12/05/2016; Chest Sin gle View dated 12/04/2016; ABDOMEN 1 VIEW KUB dated 02/17/2008 FINDINGS: Lines: None. Lungs: No evidence of edema or pneumonia. Pleural: No significant pleural effusions or pneumothorax. Cardiac: The heart size is within normal limits. Mediastinum: Within normal limits. Bones: No acute fractures. Other: None IMPRESSION: No acute cardiopulmonary disease.
--- NOTE | 2022-11-09 18:25 | RAD REPORT ---
EXAM DESCRIPTION: US - Abdomen Exam Limited - 11/09/2022 6:14 pm CLINICAL HISTORY: abnormal LFTs COMPARISON: Renal Ultrasound-Complete dated 05/13/2021 FINDINGS: The gallbladder demonstrates no gallstones. No pericholecystic fluid or gallbladder wall t hickening. The common bile duct is normal measuring 2 mm. The liver demonstrates no findings of intrahepatic biliary dilatation. IMPRESSION: Unremarkable examination. Negative for cholelithiasis or acute cholecystitis.
--- NOTE | 2022-11-09 18:43 | RAD REPORT ---
EXAM DESCRIPTION: CTAbdomen Pelvis W Contrast - 11/09/2022 6:23 pm CLINICAL HISTORY: pain improved with passage of gas COMPARISON: CT ABD PELVIS W CONTRAST dated 02/20/2008 TECHNIQUE: CT of the abdomen and pelvis was performed with IV contrast. All CT scans are performed using dose optimization technique as appropriate and may include automated exposure control or mA/KV adjustment according to patient size. FINDINGS: Lower chest: Multi-vessel coronary artery disease. Liver: No acute abnormality or suspicious lesions. Biliary: Cholelithiasis. No CT evidence of acute cholecystitis. Stomach: No significant focal abnormality. Duodenum: No significant focal abnormality. Pancreas: No significant abnormality. Spleen: No significant abnormality. Adrenal: No suspicious lesions. Kidney/ureter: No hydronephrosis. No renal calculi. Too small to characterize and/or benign appearing renal lesions are noted. Retroperitoneum: No retroperitoneal adenopathy. Vascular: No aneurysm. Atherosclerosis. Bowel: No significant focal abnormality. Normal appendix. Peritoneum: No ascites or free air. Bladder: Mild circumferential bladder wall thickening. Reproductive: No adnexal masses. Bones: No acute fracture. Bilateral acetabular degenerative changes. Multilevel degenerative changes are present in the spine. Other: n/a IMPRESSION: No acute intra-abdominal or pelvic finding. Cholelithiasis without CT of acute cholecyst itis.
--- NOTE | 2022-11-09 18:49 | ER ---
Nurse's Notes [facility] Name: Justo Quinn Age: 87 yrs Sex: Male : 1935 Arrival Date: 11/09/2022 Time: 16:53 Bed 13 Private MD: Diagnosis: Chest pain, unspecified;Other cholelithiasis without obstruction Presentation: 11/09 17:05 Chief complaint: EMS states: toned out to [facility]. Pt reports having chest pain - ld1 last night 11/08/2022. Upon arrival to ER pt is denying pain. Reports "I have not had chest pain all day but my wanted me to come get my heart checked out.". Coronavirus screen: At this time, the client does not indicate any symptoms associated with coronavirus-19. Ebola Screen: No symptoms or risks identified at this time. Initial Sepsis Screen: Does the patient meet any 2 criteria? No. Patient's initial sepsis screen is negative. Does the patient have a suspected source of infection? No. Patient's initial sepsis screen is negative. Risk Assessment: Do you want to hurt yourself or someone else? Patient reports no desire to harm self or others. Onset of symptoms was November 09, 2022. 17:05 Method Of Arrival: EMS: [facility] ld1 17:05 Acuity: MINERVA 3 ld1 Triage Assessment: 17:07 General: Appears in no apparent distress. comfortable, Behavior is calm, cooperative, ld1 appropriate for age. Pain: Denies pain. EENT: No signs and/or symptoms were reported regarding the EENT system. Neuro: Level of Consciousness is awake, alert, obeys commands, Oriented to person, place, time, situation. Cardiovascular: Capillary refill < 3 seconds Patient's skin is warm and dry. Rhythm is sinus rhythm. Respiratory: Airway is patent Respiratory effort is even, unlabored. GI: Abdomen is flat, non-distended. : No signs and/or symptoms were reported regarding the genitourinary system. Derm: No signs and/or symptoms reported regarding the dermatologic system. Musculoskeletal: No signs and/or symptoms reported regarding the musculoskeletal system. Historical: - Allergies: 17:07 No Known Allergies; ld1 - Home Meds: 17:07 allopurinol 100 mg Oral tab 1 tab 2 times per day [Active]; aspirin 81 mg Oral cap 1 ld1 cap [Active]; atorvastatin 20 mg oral tab 1 tab once daily [Active]; donepezil 10 mg oral tab 1 tab once daily [Active]; finasteride 5 mg oral tab [Active]; gabapentin 100 mg oral cap 1 cap once daily [Active]; losartan 25 mg oral tab 1 tab once daily [Active]; metformin 500 mg Oral Tb24 1 tab once daily [Active]; metoprolol tartrate 25 mg Oral tab 1 tab 2 times per day [Active]; tamsulosin 0.4 mg oral cap 1 cap once daily [Active]; - PMHx: 17:07 Diabetes mellitus; Hypercholesterolemia; Anxiety; Dementia; BPH; Gout; Alzheimer's ld1 disease; - Immunization history:: Adult Immunizations up to date, Client reports receiving the 2nd dose of the Covid vaccine. - Social history:: Smoking status: Patient denies any tobacco usage or history of. Patient/guardian denies using alcohol. - Family history:: not pertinent. - Hospitalizations: : No recent hospitalization is reported. Screenin:10 [facility] ED Fall Risk Assessment (Adult) History of falling in the last 3 months, ld1 including since admission No falls in past 3 months (0 pts). Abuse screen: Denies threats or abuse. Denies injuries from another. Nutritional screening: No deficits noted. Tuberculosis screening: No symptoms or risk factors identified. Assessment: 17:10 Reassessment: See triage assessment. ld1 17:50 Reassessment: Patient appears in no apparent distress at this time. Patient and/or db family updated on plan of care and expected duration. Pain level reassessed. Patient is alert, oriented x 3, equal unlabored respirations, skin warm/dry/pink. patient using urinal. standing at the side of the bed. Reassessment: patient assisted up to use urinal. General: Appears in no apparent distress. comfortable, Behavior is calm, cooperative, appropriate for age. Pain: Complains of pain in chest. Neuro: No deficits noted. Level of Consciousness is awake, alert, obeys commands, Oriented to person, place, time, situation, Moves all extremities. Speech is normal, Facial symmetry appears normal. Cardiovascular: No deficits noted. Respiratory: No deficits noted. Airway is patent Respiratory effort is even, unlabored, Respiratory pattern is regular, symmetrical. GI: No deficits noted. No signs and/or symptoms were reported involving the gastrointestinal system. Vital Signs: 17:05 BP 113 / 60; Pulse 76; Resp 18; Temp 97.9(O); Pulse Ox 100% on R/A; Weight 92.99 kg; ld1 Height 6 ft. 0 in. (182.88 cm); Pain 0/10; 18:00 BP 137 / 83; Pulse 71; Resp 18; Pulse Ox 98% on R/A; db 18:10 BP 137 / 83; Pulse 74; Resp 18; Pulse Ox 100% on R/A; ld1 17:05 Body Mass Index 27.80 (92.99 kg, 182.88 cm) ld1 ED Course: 16:53 Patient arrived in ED. rn 16:53 Tobias Rose MD is Attending Physician. rn 17:07 Triage completed. ld1 17:07 Arm band placed on. EKG completed in triage. Results shown to MD. ld1 17:10 Patient has correct armband on for positive identification. Placed in gown. Bed in low ld1 position. Call light in reach. Side rails up X2. court recording monitor on. Pulse ox on. NIBP on. Door closed. Noise minimized. Warm blanket given. 17:10 No provider procedures requiring assistance completed. Maintain EMS IV. Dressing ld1 intact. Good blood return noted. Site clean \\T\\ dry. Gauge \\T\\ site: 20G RAC. 18:03 Leigh Francis, RN is Primary Nurse. db 18:09 XRAY Chest (1 view) In Process Unspecified. EDMS 18:16 US Abdomen Limited In Process Unspecified. EDMS 18:25 CT Abd/Pelvis - IV Contrast Only In Process Unspecified. EDMS 19:51 IV discontinued, intact, bleeding controlled, No redness/swelling at site. Pressure aa9 dressing applied. Administered Medications: No medications were administered Medication: 17:10 VIS not applicable for this client. ld1 Outcome: 18:48 Discharge ordered by . rn 19:50 Discharged to home ambulatory, with family. aa9 19:50 Condition: stable 19:50 Discharge instructions given to patient, family, friend, Instructed on discharge instructions, follow up and referral plans. Demonstrated understanding of instructions, follow-up care. 19:51 Patient left the ED. aa9 Signatures: Dispatcher [employer] EDMS Tobias Rose MD MD rn Naty Ghosh RN RN ld1 Carli Moralez, RN RN aa9 Leigh Francis RN RN db
--- NOTE | 2022-11-09 18:49 | EDPHYS ---
Physician Documentation [facility] Name: Justo Quinn Age: 87 yrs Sex: Male : 1935 Arrival Date: 11/09/2022 Time: 16:53 Bed 13 Private MD: ED Physician Tobias Rose HPI: 11/09 17:09 This 87 yrs old Male presents to ER via EMS with complaints of chest pain. rn 17:09 The patient or guardian reports chest pain that is located primarily in the substernal rn area. Onset: yesterday. The pain does not radiate. Associated signs and symptoms: Pertinent positives: None. Pertinent negatives: abdominal pain, cough, diaphoresis, dizziness, headache, lower extremity pain, lower extremity swelling, lightheadedness, near syncope, palpitations, recent travel, shortness of breath, syncope, vomiting. The chest pain is described as aching. Duration: The patient or guardian reports a single episode, that is now resolved. Modifying factors: The symptoms are alleviated by passing gas. the symptoms are aggravated by nothing. 17:10 Severity of pain: At its worst the pain was moderate in the emergency department the rn pain has resolved. The patient has not experienced similar symptoms in the past. The patient has not recently seen a physician. Historical: - Allergies: 17:07 No Known Allergies; ld1 - Home Meds: 17:07 allopurinol 100 mg Oral tab 1 tab 2 times per day [Active]; aspirin 81 mg Oral cap 1 ld1 cap [Active]; atorvastatin 20 mg oral tab 1 tab once daily [Active]; donepezil 10 mg oral tab 1 tab once daily [Active]; finasteride 5 mg oral tab [Active]; gabapentin 100 mg oral cap 1 cap once daily [Active]; losartan 25 mg oral tab 1 tab once daily [Active]; metformin 500 mg Oral Tb24 1 tab once daily [Active]; metoprolol tartrate 25 mg Oral tab 1 tab 2 times per day [Active]; tamsulosin 0.4 mg oral cap 1 cap once daily [Active]; - PMHx: 17:07 Diabetes mellitus; Hypercholesterolemia; Anxiety; Dementia; BPH; Gout; Alzheimer's ld1 disease; - Immunization history:: Adult Immunizations up to date, Client reports receiving the 2nd dose of the Covid vaccine. - Social history:: Smoking status: Patient denies any tobacco usage or history of. Patient/guardian denies using alcohol. - Family history:: not pertinent. - Hospitalizations: : No recent hospitalization is reported. ROS: 17:10 Constitutional: Negative for fever, chills, and weight loss, Eyes: Negative for injury, rn pain, redness, and discharge, Neck: Negative for injury, pain, and swelling, Cardiovascular: + chest pain Respiratory: Negative for shortness of breath, cough, wheezing, and pleuritic chest pain, Abdomen/GI: Negative for abdominal pain, nausea, vomiting, diarrhea, and constipation, Back: Negative for injury and pain, MS/Extremity: Negative for injury and deformity, Skin: Negative for injury, rash, and discoloration, Neuro: Negative for headache, weakness, numbness, tingling, and seizure. Exam: 17:08 ECG was reviewed by the Attending Physician. rn 17:10 Constitutional: This is a well developed, well nourished patient who is awake, alert, rn and in no acute distress. Head/Face: Normocephalic, atraumatic. Chest/axilla: Normal chest wall appearance and motion. Nontender with no deformity. No lesions are appreciated. Cardiovascular: Regular rate and rhythm. No pulse deficits. Respiratory: Clear bilateral breath sounds. No increased work of breathing, no retractions or nasal flaring. Abdomen/GI: soft, non-tender Skin: Warm, dry MS/ Extremity: Pulses equal, no cyanosis. Neuro: Awake and alert, GCS 15 Vital Signs: 17:05 BP 113 / 60; Pulse 76; Resp 18; Temp 97.9(O); Pulse Ox 100% on R/A; Weight 92.99 kg; ld1 Height 6 ft. 0 in. (182.88 cm); Pain 0/10; 18:00 BP 137 / 83; Pulse 71; Resp 18; Pulse Ox 98% on R/A; db 18:10 BP 137 / 83; Pulse 74; Resp 18; Pulse Ox 100% on R/A; ld1 17:05 Body Mass Index 27.80 (92.99 kg, 182.88 cm) ld1 MDM: 16:53 Patient medically screened. rn 18:45 Differential diagnosis: acute myocardial infarction, acute pericarditis, anxiety, rn coronary artery disease chest wall pain, costochondritis, esophagitis, gastritis, gastroesophageal reflux disease (GERD), pancreatitis, pleurisy, pneumonia, pneumothorax. HEART Score: History: Slightly Suspicious (0), ECG: Non specific repolarization disturbance / LBTB / PM (1), Age: > or = 65 years (2), Risk Factors: 1 or 2 risk factors (1), Troponin: < or = 1 x Normal Limit (0), Total Score = 4. Data reviewed: vital signs, nurses notes, lab test result(s), EKG, radiologic studies, CT scan, plain films, ultrasound, and as a result, I will discharge patient. Care significantly affected by the following chronic conditions: Diabetes, Hypertension. Counseling: I had a detailed discussion with the patient and/or guardian regarding: the historical points, exam findings, and any diagnostic results supporting the discharge/admit diagnosis, lab results, radiology results, the need for outpatient follow up, to return to the emergency department if symptoms worsen or persist or if there are any questions or concerns that arise at home. Response to treatment: the patient's symptoms have resolved after treatment, and as a result, I will discharge patient. Special discussion: Based on the patient's history, exam, and Dx evaluation, there is no indication for emergent intervention or inpatient Tx. It is understood by the patient/guardian that if the Sx's persist or worsen they need to return immediately for re-evaluation. I discussed with the patient/guardian in detail that at this point there is no indication for admission to the hospital. It is understood, however, that if the symptoms persist or worsen the patient needs to return immediately for re-evaluation. ED course: Pt denies having chest pain today, last episode last night, neg troponin and pain resolved after passing gas. CT shows cholelithiasis without cholecystitis but no other acute findings. NO abd tenderness on exam. Afebrile. Will dc home with pcp f/u and given return precautions. . 18:47 ED course: Ultrasound neg for cholelithiasis. rn 19:02 ED course: previous bilirubin 2.1 1 year ago. Pt states feels fine, no repeat chest rn pain, wants to leave and go to dinner. Family/daughter in room, comfortable with plan and neg w/u here. Pt at [facility] with some oversight, and return precautions given and understood. . 11/09 16:54 Order name: Basic Metabolic Panel; Complete Time: 17:31 rn 11/09 16:54 Order name: CBC with Diff; Complete Time: 17: rn 11/09 16:54 Order name: LFT's; Complete Time: 17: rn 11/09 16:54 Order name: NT PRO-BNP; Complete Time: 17: rn 11/09 16:54 Order name: PT-INR; Complete Time: 17: rn 11/09 16:54 Order name: Troponin HS; Complete Time: 17: rn 11/09 16:54 Order name: XRAY Chest (1 view); Complete Time: 18:23 rn 11/09 16:54 Order name: Cardiac monitoring; Complete Time: 17: rn 11/09 16:54 Order name: EKG - Nurse/Tech; Complete Time: 17: rn 11/09 16:54 Order name: IV Saline Lock; Complete Time: 17: rn 11/09 16:54 Order name: Labs collected and sent; Complete Time: 17: rn 11/09 17:10 Order name: CT Abd/Pelvis - IV Contrast Only; Complete Time: 18:44 rn 11/09 17:32 Order name: US Abdomen Limited; Complete Time: 18: rn 11/09 16:54 Order name: O2 Per Protocol; Complete Time: 17: rn 11/09 16:54 Order name: O2 Sat Monitoring; Complete Time: 17:05 rn EC:08 Rate is 71 beats/min. Rhythm is regular. Left axis deviation noted. QRS is positive in rn lead I and negative in lead aVF. RI interval is normal. QRS interval is prolonged at 140 msec. QT interval is normal. No Q waves. T waves are Normal. No ST changes noted. Clinical impression: NSR w/ Non-specific ST/T Changes. Interpreted by me. Reviewed by me. Administered Medications: No medications were administered Disposition Summary: 11/09/22 18:48 Discharge Ordered Location: Home rn Problem: new rn Symptoms: are resolved rn Condition: Stable rn Diagnosis - Chest pain, unspecified rn - Other cholelithiasis without obstruction rn Followup: rn - With: Private Physician - When: As needed - Reason: Recheck today's complaints, Re-evaluation by your physician Discharge Instructions: - Discharge Summary Sheet rn - Nonspecific Chest Pain, Adult rn - Cholelithiasis rn Forms: - Medication Reconciliation Form rn - Thank You Letter rn - Antibiotic furnace roaster - Prescription Opioid Use rn Signatures: Dispatcher [employer] Tobias Carrizales MD MD rn Dibbern, Lauren RN RN ld1
[2022-11-09 20:45] VITALS: TEMP 97.9
[2022-11-09 20:46] VITALS: BP 137/83
[2022-11-09 20:48] VITALS: O2SAT 100
--- NOTE | 2022-11-10 16:56 | EKG ---
Test Date: 2022-11-09 Test Time: 16:57:50 Gas Meter Checker: LILA MEASUREMENT RESULTS: Intervals: Rate: 71 UT: QRSD: 140 QT: 410 QTc: 445 Point Clear: P: UT: QRS: -68 T: 38 INTERPRETIVE STATEMENTS: Sinus rhythm Right bundle branch block Left anterior fascicular block Bifascicular block Voltage criteria for left ventricular hypertrophy Cannot rule out Septal infarct, age undetermined Abnormal ECG Compared to ECG 12/05/2016 05:42:22 Right bundle-branch block now present Left anterior fascicular block now present Bifascicular block now present Myocardial infarct finding now present Electronically Signed On 11-10-22 16:54:14 CHILD LIFE ASSISTANT by Christian Parker
== END 2022-11-09 19:51 | disposition home or self-care (01) ==
LOC: ER 16:44
DX: K80.80 Other cholelithiasis without obstruction (principal); E11.9 Type 2 diabetes mellitus without complications; G30.9 Alzheimer's disease, unspecified; F02.80 Dementia in other diseases classified elsewhere, unspecified severity, without behavioral disturbance, psychotic disturbance, mood disturbance, and anxiety; E78.00 Pure hypercholesterolemia, unspecified; Z79.82 Long term (current) use of aspirin
CPT/HCPCS: 85025; 80048; 36415; 85610; 80076; 84484; 83880; 74177; 71045; 76705; Q9967; 93005; 99284

== ENCOUNTER 2024-01-16 16:27 | Emergency (ER) | payer OTHER ==
[2024-01-16] MEDS ORDERED: ALBUTEROL 2.5 MG/3 ML NEB SOL ONE (17:32)
[2024-01-16] MEDS ORDERED: IPRATROPIUM BROM 0.5MG/2.5ML ONE (17:32)
--- NOTE | 2024-01-16 17:37 | RAD REPORT ---
EXAM DESCRIPTION: CT - Head Brain Wo Cont - 01/16/2024 5:28 pm CLINICAL HISTORY: MENTAL STATUS CHANGE COMPARISON: Head Brain Wo Cont dated 12/04/2016 TECHNIQUE: All CT scans are performed using dose optimization technique as appropriate and may inclu de automated exposure control or mA/KV adjustment according to patient size. FINDINGS: No intracranial hemorrhage, hydrocephalus or extra-axial fluid collection.No areas of brai n edema or evidence of midline shift. Moderate chronic small vessel ischemic changes. Age advanced ce rebral atrophy. Ethmoid air cell thickening. Mild maxillary sinus thickening. The calvarium is intact. IMPRESSION: No acute intracranial abnormality.
--- NOTE | 2024-01-16 17:46 | RAD REPORT ---
EXAM DESCRIPTION: RAD - Chest Single View - 01/16/2024 5:37 pm CLINICAL HISTORY: COUGH COMPARISON: Chest Single View dated 11/09/2022; Chest Pa And Lat (2 Views) dated 10/23/2021; Chest Sin gle View dated 12/05/2016; Chest Single View dated 12/04/2016 FINDINGS: Lines: None. Lungs: Linear subsegmental atelectasis versus scarring in the right lung base. Pleural: No significant pleural effusions or pneumothorax. Cardiac: The heart size is within normal limits. Mediastinum: Within normal limits. Bones: No acute fractures. Other: None IMPRESSION: No acute cardiopulmonary disease.
[2024-01-16 17:57] LABS: Absolute Basophils 0.1 K/uL (0-0.5); Absolute Eosinophils 0.2 K/uL (0-0.5); Absolute Lymphocytes (CBC) 1.5 K/uL (0.7-4.9); Absolute Neutrophil 7.8 K/uL (1.8-8.0); Basophils % 0.8 % (0-1.3); Eosinophils % 1.8 % (0-4.4); Hematocrit 37.7 % (39.6-49.0); Hemoglobin 13.3 g/dL (13.6-17.9); Lymphocytes % 14.5 % (15.3-44.8); MCH 33.7 pg (27.0-35.0); MCHC 35.2 g/dL (32.0-36.0); MCV 95.7 fL (80-100); MPV 7.9 fL (7.6-11.3); Monocytes % 9.7 % (3.3-12.3); Neutrophils % 73.2 % (41.7-73.7); Nucleated Red Blood Cells % 0.2 % (0-0); Platelets 215 thou/uL (152-406); RBC Red Blood Cell Count 3.94 M/uL (4.33-5.43); Red Cell Distribution Width 14.4 % (12.1-15.2)
[2024-01-16 18:15] LABS: Albumin 3.4 g/dL (3.4-5.0); Anion Gap 8.5 mEq/L (5.0-15.0); Bilirubin Total 2.3 mg/dL (0.2-1.0); Globulin 3.5 g/dL (2.3-3.5); PT Prothrombin Time 12.8 SECONDS (9.5-12.5); PTT, Activated Partial Thromb 32.4 SECONDS (24.3-36.9); Potassium 3.5 mEq/L (3.5-5.1); Protein, Total 6.9 g/dL (6.4-8.2); Protime INR 1.17; Troponin High Sensitivity 23.3 pg/mL (<58.9)
[2024-01-16 18:17] LABS: SARS-CoV-2 Antigen CONTROL BLUE LINE VIS/BG OK; SARS-CoV-2 Antigen Rapid Res Negative (Negative)
[2024-01-16 18:25] LABS: Specific Gravity 1.026 (1.005-1.030); Sqamous Epithelial None Seen /HPF (None Seen); Urine Bacteria <20 /HPF (<20); Urine Bilirubin NEGATIVE (Negative); Urine Blood Negative (Negative); Urine Clarity Clear (Clear); Urine Color Yellow (Yellow); Urine Culture Reflex Order NOT NEEDED; Urine Glucose NEGATIVE (Negative); Urine Ketones NEGATIVE (Negative); Urine Microscopic Reflex YN ORDER UMIC; Urine Mucus Slight /HPF (None Seen); Urine Nitrite NEGATIVE (Negative); Urine Protein TRACE (Negative); Urine RBC <5 /HPF (None Seen); Urine Urobilinogen Normal (Normal); Urine WBC <5 /HPF (<5); Urine pH 5.5 (5.0-7.0)
--- NOTE | 2024-01-16 19:02 | RAD REPORT ---
EXAM DESCRIPTION: CT - Chest For Pe Angio - 01/16/2024 6:42 pm CLINICAL HISTORY: COUGH COMPARISON: No comparisons TECHNIQUE: Dynamically enhanced axial 3 mm thick images of the chest were obtained during administra tion of <100> mL Isovue 370 IV contrast. Coronal and oblique reconstruction images were generated and reviewed. Exam utilizes a protocol for optimal evaluation of pulmonary arterial tree. Maximum intensity projections 3D imaging was utilized All CT scans are performed using dose optimization technique as appropriate and may include automated exposure control or mA/KV adjustment according to patient size. FINDINGS: Chest Wall: No suspicious thyroid nodules or pathologic lymphadenopathy. Lungs: Motion artifact. Dependent atelectasis. Minimal scarring versus subsegmental atelectasis in th e right middle lobe. Pleura: No significant effusions or pneumothorax. Mediastinum/carolyn: No pathologic lymphadenopathy. Pulmonary arteries/Aorta: No filling defect identified. No aortic aneurysm. Limited evaluation of the subsegmental pulmonary arteries due to motion. Heart: No significant pericardial effusion. Normal heart size. Multi-vessel coronary artery disease. Upper abdomen: Reference same-day CT of the abdomen Bones: No acute abnormality. Multilevel degenerative changes are present in the spine. IMPRESSION: Negative for pulmonary embolism. Motion artifact. Dependent atelectasis. No evidence of edema or pneumonia.
--- NOTE | 2024-01-16 19:07 | RAD REPORT ---
EXAM DESCRIPTION: CTAbdomen Pelvis W Contrast - 01/16/2024 6:44 pm CLINICAL HISTORY: elevated bilirubin COMPARISON: Abdomen Pelvis W Contrast dated 11/09/2022; CT ABD PELVIS W CONTRAST dated 02/20/2008 TECHNIQUE: CT of the abdomen and pelvis was performed. All CT scans are performed using dose optimization technique as appropriate and may include automated exposure control or mA/KV adjustment according to patient size. FINDINGS: Lower chest: See same-day CT chest. Liver: Hepatic steatosis. Biliary: Cholelithiasis with distended gallbladder. No pericholecystic inflammatory changes. The comm on bile duct measures 8 millimeters which is within normal limits given the patient's age. Stomach: No significant focal abnormality. Duodenum: No significant focal abnormality. Pancreas: Pancreatic atrophy. Spleen: No significant abnormality. Adrenal: No suspicious lesions. Kidney/ureter: No hydronephrosis. No renal calculi. Too small to characterize and/or benign appearing renal lesions are noted. Retroperitoneum: No retroperitoneal adenopathy. Vascular: Atherosclerosis without aneurysm. Bowel: Moderate stool. No bowel obstruction. Diverticulosis without diverticulitis. Normal appendix.. Peritoneum: No ascites or free air. Tiny fat containing umbilical hernia. Bladder: Grossly unremarkable. Reproductive: No adnexal masses. Bones: No acute fracture. Multilevel degenerative changes are present in the spine. Other: n/a IMPRESSION: No acute intra-abdominal or pelvic finding. Cholelithiasis with no CT is acute cholecyst itis. Other incidental findings as noted above. Common bile duct is nondilated given the patient's ag e. No intrahepatic biliary duct dilatation present to explain elevated bilirubin.
--- NOTE | 2024-01-16 19:32 | ER ---
Nurse's Notes [facility] Name: Justo Quinn Age: 88 yrs Sex: Male : 1935 Arrival Date: 01/16/2024 Time: 16:[address] Private MD: Mauricio Pollard B Diagnosis: Cough;Dementia Presentation: 01/15 16:45 Chief complaint: Patient's son or daughter states: Cough with lots of phlegm, worsening nj1 on hallucinations, and decreased appetite over the weekend. Lives at assisted living facility. 16:45 Coronavirus screen: Vaccine status: Patient reports receiving the 2nd dose of the covid nj1 vaccine. Ebola Screen: Patient denies travel to an Ebola-affected area in the 21 days before illness onset. Initial Sepsis Screen: Does the patient meet any 2 criteria? Altered Mental Status. No. Patient's initial sepsis screen is negative. Does the patient have a suspected source of infection? No. Patient's initial sepsis screen is negative. Risk Assessment: Do you want to hurt yourself or someone else? Patient reports no desire to harm self or others. Onset of symptoms was January 14, 2024. 16:45 Method Of Arrival: Wheelchair nj1 16:45 Acuity: MINERVA 3 nj1 Historical: - Allergies: 16:58 No Known Allergies; nj1 - PMHx: 16:58 Alzheimer's disease; Anxiety; BPH; Dementia; diabetes mellitus; Gout; nj1 Hypercholesterolemia; - Immunization history:: Client reports receiving the 2nd dose of the Covid vaccine. - Infectious Disease History:: Denies. - Social history:: Smoking status: Patient/guardian denies using tobacco. Screenin:[facility] ED Fall Risk Assessment (Adult) History of falling in the last 3 months, iw including since admission Confusion or Disorientation Yes (5 pts) Intoxicated or Sedated No (0 pts) Impaired Gait Mobility Assist Device Used Altered Elimination No (0 pt) Score/Fall Risk Level 3 or more points = High Risk Hourly rounding (assess needs \T\ fall precautionary measures) done, Utilized family, sitter, or virtual mechanical operator as indicated. Abuse screen: Denies threats or abuse. Denies injuries from another. Nutritional screening: No deficits noted. Tuberculosis screening: No symptoms or risk factors identified. Assessment: 17:09 General: Appears in no apparent distress. Behavior is cooperative. Pain: Denies pain. iw Neuro: Level of Consciousness is awake, alert, obeys commands, Oriented to person, Moves all extremities. Cardiovascular: Capillary refill < 3 seconds in bilateral fingers Patient's skin is warm and dry. Respiratory: Reports cough that is productive, Airway is patent Trachea midline Respiratory effort is even, unlabored, Respiratory pattern is regular, symmetrical. GI: Abdomen is non-distended. Derm: Skin is fragile, is thin, Skin is pink, warm \T\ dry. normal. Musculoskeletal: Range of motion: intact in all extremities. 17:58 Reassessment: awaiting test results. Call light within reach. Daughter remains at bedside. Lights dimmed for comfort. 18:44 Reassessment: resting at this time. Eyes closed. RR even and unlabored. ss 19:50 General: Appears in no apparent distress. Behavior is cooperative. Pain: Denies pain. vc1 Neuro: Level of Consciousness is awake, alert, obeys commands, Oriented to person. Cardiovascular: Capillary refill < 3 seconds Patient's skin is warm and dry. Respiratory: Reports cough that is Airway is patent Respiratory effort is even, unlabored, Respiratory pattern is regular, symmetrical. GI: Abdomen is non-distended. : No deficits noted. No signs and/or symptoms were reported regarding the genitourinary system. EENT: No deficits noted. No signs and/or symptoms were reported regarding the EENT system. Derm: Skin is intact, is fragile, Skin is pink, warm \T\ dry. normal. Musculoskeletal: Range of motion: intact in all extremities, unsteady gait. Vital Signs: 16:45 BP 147 / 82; Pulse 81; Resp 18; Temp 98.9(O); Pulse Ox 93% on R/A; Weight 90.72 kg; nj1 Height 6 ft. 0 in. ; 18:01 BP 160 / 110; Pulse 89; Resp 17; Pulse Ox 99% on Nebulizer Mask; Pain 0/10; ss 18:44 BP 148 / 79; Pulse 88; Resp 17; Pulse Ox 98% on R/A; Pain 0/10; ss 19:30 BP 160 / 88; Pulse 89; Resp 16; Temp 98.6; Pulse Ox 99% on R/A; vc1 16:45 Body Mass Index 27.12 (90.72 kg, 182.88 cm) nj1 18:01 Pain Scale: Adult ss 18:44 Pain Scale: Adult ss ED Course: 15:00 Patient has correct armband on for positive identification. Placed in gown. Bed in low ss position. Call light in reach. Side rails up X2. 15:00 Report given to JESSICA Melendez. ss 16:29 Patient arrived in ED. mr 16:29 Mauricio Pollard MD is Private Physician. mr 16:58 Triage completed. nj1 16:58 Arm band placed on right wrist. nj1 17:02 Nino Mcneill PA is PHCP. cp 17:02 Nino Stevenson MD is Attending Physician. cp 17:09 Pari Blank RN is Primary Nurse. iw 17:20 Inserted saline lock: 20 gauge in right antecubital area, using aseptic technique. ss Blood collected. 17:29 CT Head Brain wo Cont In Process Unspecified. EDMS 17:39 Chest Single View XRAY In Process Unspecified. EDMS 18:44 CT Chest For PE Angio In Process Unspecified. EDMS 18:46 CT Abd/Pelvis - IV Contrast Only In Process Unspecified. EDMS 19:51 No provider procedures requiring assistance completed. IV discontinued, intact, vc1 bleeding controlled, No redness/swelling at site. Pressure dressing applied. 19:52 Provided Education on: fall safety, Omer jeffries. vc1 Administered Medications: 17:58 Drug: DuoNeb Nebulize (2.5 mg - 0.5 mg) 3 ml Nebulizer once Route: Nebulizer; ss 19:49 Follow up: Response: No adverse reaction vc1 19:48 Drug: Tessalon Perle PO 200 mg PO once Route: PO; vc1 19:48 Follow up: Response: Medication administered at discharge. vc1 19:48 Drug: MethylPrednisoLONE IVP 125 mg IVP once Route: IVP; Site: right antecubital; vc1 19:49 Follow up: Response: Medication administered at discharge. vc1 Medication: 17:11 VIS not applicable for this client. iw Outcome: 19:31 Discharge ordered by MD. cp 19:51 Discharged to home via wheelchair, with family, vc1 19:51 Condition: good 19:51 Discharge instructions given to family, Instructed on discharge instructions, follow up and referral plans. medication usage, Demonstrated understanding of instructions, follow-up care, medications, Prescriptions given X 5 19:52 Patient left the ED. vc1 Signatures: Dispatcher [employer] EDMS Cornelia Simpson, Reg Reg Pari Hernandez, RN RN Virgen Griggs RN RN ss Page, Corey, PA PA cp Calcote, Vanessa, RN RN vc1 Ana Warren RN RN nj1
--- NOTE | 2024-01-16 19:32 | EDPHYS ---
Physician Documentation [facility] Name: Justo Quinn Age: 88 yrs Sex: Male : 1935 Arrival Date: 01/16/2024 Time: 16:[address] Private MD: Mauricio Pollard B ED Physician Nino Stevenson HPI: 01/15 17:15 This 88 yrs old Male presents to ER via Wheelchair with complaints of Cough, Decreased cp Appetite, hallucinations. 17:15 The patient or guardian reports cough, that is intermittent, with no sputum. Onset: The cp symptoms/episode began/occurred 2 day(s) ago. 17:15 Severity of symptoms: in the emergency department the symptoms are unchanged, despite cp home interventions. 17:15 Associated signs and symptoms: Pertinent positives: hallucinations, Pertinent cp negatives: chest pain, diarrhea, fever, vomiting, abdominal pain. Historical: - Allergies: 16:58 No Known Allergies; nj1 - PMHx: 16:58 Alzheimer's disease; Anxiety; BPH; Dementia; diabetes mellitus; Gout; nj1 Hypercholesterolemia; - Immunization history:: Client reports receiving the 2nd dose of the Covid vaccine. - Infectious Disease History:: Denies. - Social history:: Smoking status: Patient/guardian denies using tobacco. ROS: 17:20 Eyes: Negative for injury, pain, redness, and discharge, cp 17:20 Constitutional: Negative for body aches, chills, fever, poor PO intake, 17:20 ENT: Negative for drainage from ear(s), ear pain, sore throat, difficulty swallowing, difficulty handling secretions, 17:20 Cardiovascular: Negative for chest pain, edema, 17:20 Respiratory: Positive for cough, with no reported sputum, Negative for shortness of breath, wheezing, 17:20 Abdomen/GI: Negative for abdominal pain, vomiting, diarrhea, constipation, 17:20 : Negative for urinary symptoms, 17:20 Neuro: Positive for altered mental status, Negative for dizziness, gait disturbance, headache, 17:20 All other systems are negative, Exam: 17:25 Constitutional: The patient appears in no acute distress, alert, awake, cp non-diaphoretic, non-toxic, well developed, well nourished, 17:25 Head/Face: Normocephalic, atraumatic. cp 17:25 Eyes: Periorbital structures: appear normal, Pupils: equal, round, and reactive to cp light and accomodation, Extraocular movements: intact throughout, Conjunctiva: normal, no exudate, no injection, Sclera: no appreciated abnormality, Lids and lashes: appear normal, bilaterally, 17:25 ENT: External ear(s): are unremarkable, Nose: is normal, Mouth: Lips: moist, Oral cp mucosa: pink and intact, moist, Posterior pharynx: Airway: no evidence of obstruction, patent, 17:25 Neck: ROM/movement: is normal, is supple, without pain, no range of motions limitations, 17:25 Chest/axilla: Inspection: normal, 17:25 Cardiovascular: Rate: normal, Rhythm: regular, Edema: is not appreciated, JVD: is not appreciated, 17:25 Respiratory: the patient does not display signs of respiratory distress, Respirations: normal, no use of accessory muscles, no retractions, labored breathing, is not present, Breath sounds: bronchial sounds, that are mild, are heard diffusely, stridor, is not appreciated, wheezing: is not appreciated, 17:25 Abdomen/GI: Inspection: abdomen appears normal, Palpation: abdomen is soft and non-tender, in all quadrants, 17:25 Back: pain, is absent, ROM is normal, 17:25 Skin: cellulitis, is not appreciated, no rash present. 17:25 Neuro: Orientation: to person, situation, Mentation: able to follow commands, Motor: moves all fours, strength is normal, 18:03 ECG was reviewed by the Attending Physician. cp Vital Signs: 16:45 BP 147 / 82; Pulse 81; Resp 18; Temp 98.9(O); Pulse Ox 93% on R/A; Weight 90.72 kg; nj1 Height 6 ft. 0 in. ; 18:01 BP 160 / 110; Pulse 89; Resp 17; Pulse Ox 99% on Nebulizer Mask; Pain 0/10; ss 18:44 BP 148 / 79; Pulse 88; Resp 17; Pulse Ox 98% on R/A; Pain 0/10; ss 19:30 BP 160 / 88; Pulse 89; Resp 16; Temp 98.6; Pulse Ox 99% on R/A; vc1 16:45 Body Mass Index 27.12 (90.72 kg, 182.88 cm) nj1 18:01 Pain Scale: Adult ss 18:44 Pain Scale: Adult ss MDM: 17:02 Patient medically screened. cp 18:00 Differential Diagnosis: Bronchitis Influenza Otitis Media Pneumonia Other sepsis. cp 19:30 Data reviewed: vital signs, nurses notes, EMS record, lab test result(s), EKG, cp radiologic studies, CT scan, plain films, I have discussed the patient's presentation/case with the attending Emergency Department Physician;. ED course: VSS. Will discharge to home for continued monitoring. 19:30 Counseling: I had a detailed discussion with the patient and/or guardian regarding the cp historical points, exam findings, and any diagnostic results supporting the discharge/admit diagnosis, lab results, radiology results, to return to the emergency department if symptoms worsen or persist or if there are any questions or concerns that arise at home. 01/15 17:14 Order name: Blood Culture Adult (2) cp 01/15 17:14 Order name: CBC with Diff; Complete Time: 18:15 cp 01/15 18:15 Interpretation: Normal except: RBC 3.94; HGB 13.3; HCT 37.7; LYM% 14.5. cp 01/15 17:14 Order name: CMP; Complete Time: 18:16 cp 01/15 18:16 Interpretation: Normal except: CL 109; BUN 21; GFR 58; BILIT 2.3; A/G 1.0. cp 01/15 17:14 Order name: Lactate w/ 2H reflex if indic.; Complete Time: 18:39 cp 01/15 18:39 Interpretation: LAC 1.4; Reviewed. cp 01/15 17:14 Order name: Protime (+inr); Complete Time: 18:15 cp 01/15 19:21 Interpretation: Reviewed. cp 01/15 17:14 Order name: Ptt, Activated; Complete Time: 18:15 cp 01/15 17:14 Order name: Urinalysis w/ reflexes; Complete Time: 18:39 cp 01/15 18:39 Interpretation: Normal except: UPROT TRACE. cp 01/15 17:14 Order name: SARS RAPID; Complete Time: 18:39 cp 01/15 18:40 Interpretation: Reviewed. cp 01/15 17:14 Order name: Influenza Screen (a \T\ B); Complete Time: 18:39 cp 01/15 18:40 Interpretation: Reviewed. cp 01/15 17:14 Order name: Troponin High Sensitivity; Complete Time: 18:16 cp 01/15 18:40 Interpretation: Reviewed. cp 01/15 17:14 Order name: Urine Culture cp 01/15 17:14 Order name: CT Head Brain wo Cont; Complete Time: 18:15 cp 01/15 17:14 Order name: Chest Single View XRAY; Complete Time: 18:15 cp 01/15 18:19 Order name: CT Chest For PE Angio; Complete Time: 19:15 cp 01/15 18:19 Order name: CT Abd/Pelvis - IV Contrast Only; Complete Time: 19:15 cp 01/15 17:14 Order name: EKG; Complete Time: 17:15 cp 01/15 17:14 Order name: Accucheck; Complete Time: 17:58 cp 01/15 17:14 Order name: Cardiac monitoring; Complete Time: 17:16 cp 01/15 17:14 Order name: EKG - Nurse/Tech; Complete Time: 17:16 cp 01/15 17:14 Order name: IV Saline Lock - Large Bore; Complete Time: 17:16 cp 01/15 17:14 Order name: Labs collected and sent; Complete Time: 17:16 cp 01/15 17:14 Order name: O2 Per Protocol; Complete Time: 17:16 cp 01/15 17:14 Order name: O2 Sat Monitoring; Complete Time: 17:16 cp 01/15 17:14 Order name: Vital Signs; Complete Time: 17:16 cp EC:04 Rate is 79 beats/min. Rhythm is regular. ME interval is prolonged at 218 msec. QRS cp interval is prolonged at 150 msec. QT interval is normal. T waves are Inverted in leads aVR, V2, V3. Interpreted by me. Reviewed by me. Administered Medications: 17:58 Drug: DuoNeb Nebulize (2.5 mg - 0.5 mg) 3 ml Nebulizer once Route: Nebulizer; ss 19:49 Follow up: Response: No adverse reaction vc1 19:48 Drug: Tessalon Perle PO 200 mg PO once Route: PO; vc1 19:48 Follow up: Response: Medication administered at discharge. vc1 19:48 Drug: MethylPrednisoLONE IVP 125 mg IVP once Route: IVP; Site: right antecubital; vc1 19:49 Follow up: Response: Medication administered at discharge. vc1 Disposition Summary: 01/16/24 19:31 Discharge Ordered Notes: Location: Home cp Problem: new cp Symptoms: have improved cp Condition: Stable cp Diagnosis - Cough cp - Dementia cp Followup: cp - With: Private Physician - When: 2 - 3 days - Reason: Recheck today's complaints Discharge Instructions: - Discharge Summary Sheet cp - Cool Mist Vaporizer cp - Cough, Adult cp Forms: - Medication Reconciliation Form cp - Thank You Letter cp - Antibiotic Education cp - Prescription Opioid Use cp - Patient Portal Instructions cp - Leadership Thank You Letter cp Prescriptions: - Bromfed DM 2-30-10 mg/5 mL Oral syrup - administer 10 milliliter ORAL route every 6 hours as needed for cold symptoms; cp 240 milliliter; Refills: 0, Product Selection Permitted - NEBULIZER MACHINE - nebulize 1 ampule NEBULIZATION route every 6 hours As needed; 1 unit; Refills: cp 0, Product Selection Permitted - Albuterol Sulfate 2.5 mg /3 mL (0.083 %) Inhalation Solution for Nebulization - inhale 1 unit NEBULIZATION route every 8 hours As needed; 1 unit; Refills: 0, cp Product Selection Permitted - Zithromax Z-Yosef 250 mg Oral Tablet - take 1 tablet ORAL route as directed for 5 days Day 1 - take two (2) tablets cp one time. Day 2, 3, 4 , 5 take one (1) tablet once daily.; 6 tablet; Refills: 0, Product Selection Permitted - Medrol (Yosef) 4 mg Oral Tablets, Dose Pack - take 1 tablet ORAL route as directed - follow package instructions; 1 packet; cp Refills: 0, Product Selection Permitted Signatures: Dispatcher [employer] EDMS Virgen Mi RN RN ss Nino Mcneill PA PA cp Nora Ortez RN RN vc1 Ana Warren RN RN nj1 Corrections: (The following items were deleted from the chart) 17:15 17:14 BLOOD CULTURE*+BA.LAB.BRZ ordered. EDMS EDMS 17:15 17:14 CBC+H.LAB.BRZ ordered. EDMS EDMS 17:15 17:15 COMPREHENSIVE METABOLIC PANEL+C.LAB.BRZ ordered. EDMS EDMS 17:15 17:15 LACTATE+C.LAB.BRZ ordered. EDMS EDMS 17:15 17:15 PROTIME (+INR)+COAG.LAB.BRZ ordered. EDMS EDMS 17:15 17:15 PTT, ACTIVATED+COAG.LAB.BRZ ordered. EDMS EDMS 17:15 17:15 Urinalysis+U.LAB.BRZ ordered. EDMS EDMS 17:15 17:15 SARS-COV-2 Antigen Rapid+I.LAB.BRZ ordered. EDMS EDMS 17:15 17:15 Influenza Screen (A \T\ B)+BA.LAB.BRZ ordered. EDMS EDMS 17:15 17:15 Troponin High Sensitivity+C.LAB.BRZ ordered. EDMS EDMS 17:15 17:15 Urine Culture+BA.LAB.BRZ ordered. EDMS EDMS 17:32 01/14 17:20 Constitutional: Negative for body aches, chills, fever, poor PO intake, cp cp 04/ 17:32 01/14 17:20 Cardiovascular: Negative for chest pain, edema, cp cp / 17:32 01/14 17:20 Respiratory: Positive for cough, with no reported sputum, Negative for cp shortness of breath, wheezing, cp 04/ 17:32 04/ 17:20 Abdomen/GI: Negative for abdominal pain, vomiting, diarrhea, constipation, cp cp / 17:32 01/14 17:20 : Negative for urinary symptoms, cp cp 04/ 17:32 04 17:20 Eyes: Negative for injury, pain, redness, and discharge, cp cp / 17:32 01/14 17:20 ENT: Negative for drainage from ear(s), ear pain, sore throat, difficulty cp swallowing, difficulty handling secretions, cp / 17:32 04 17:20 Neuro: Positive for altered mental status, Negative for dizziness, gait cp disturbance, headache, cp / 17:32 04/ 17:20 All other systems are negative, cp cp / 18:05 18:03 ECG was reviewed by the Attending Physician. cp cp 18:19 18:19 Abdomen Pelvis W Con+CT.RAD.BRZ ordered. EDMS EDMS
[2024-01-16] MEDS ORDERED: METHYLPREDNISOLONE 125 MG INJ ONE (19:34)
[2024-01-16] MEDS ORDERED: BENZONATATE 100 MG CAP PO ONE (19:35)
[2024-01-17 03:23] VITALS: BP 160/88; TEMP 98.6; O2SAT 99
--- NOTE | 2024-01-17 12:42 | EKG ---
Test Date: 2024-01-16 Test Time: 17:02:34 Tobacco Packer: OMAR MEASUREMENT RESULTS: Intervals: Rate: 79 MA: 218 QRSD: 150 QT: 406 QTc: 465 [place]: P: 31 MA: 218 QRS: -73 T: 70 INTERPRETIVE STATEMENTS: Sinus rhythm with 1st degree AV block Right bundle branch block Left anterior fascicular block Bifascicular block Left ventricular hypertrophy with repolarization abnormality Abnormal ECG Compared to ECG 11/09/2022 16:57:50 First degree AV block now present Early repolarization now present Myocardial infarct finding no longer present Bifascicular block still present Electronically Signed On 01-17-24 12:40:17 CDT by Christian Parker
== END 2024-01-16 19:52 | disposition home or self-care (01) ==
LOC: ER 16:27
DX: R05.9 Cough, unspecified (principal); G30.9 Alzheimer's disease, unspecified; F02.80 Dementia in other diseases classified elsewhere, unspecified severity, without behavioral disturbance, psychotic disturbance, mood disturbance, and anxiety; Z11.52 Encounter for screening for COVID-19
CPT/HCPCS: 93005; 87040 ×2; 87088; 85025; 81001; 87086; 36415; 85610; 83605; 85730; 84484; 80053; 87804 ×2; 70450; 71275; 74177; 71045; 94640; 96374; 99285; 87811; Q9967; J7613; J7644; J2930

== ENCOUNTER 2024-03-08 17:36 | Inpatient (IN) | payer OTHER ==
--- NOTE | 2024-03-08 18:22 | RAD REPORT ---
EXAM DESCRIPTION: CT - Head Brain Wo Cont - 03/08/2024 6:11 pm CLINICAL HISTORY: Alteration of awareness/confusion COMPARISON: January 2024 TECHNIQUE: Computed axial tomography of the head was obtained. IV contrast was not requested. All CT scans are performed using dose optimization technique as appropriate and may include automated exposure control or mA/KV adjustment according to patient size. FINDINGS: An intracranial bleed is not seen The ventricles are normal in caliber No extra-axial fluid collection is noted. 6.2 centimeter low-density area right occipital lobes compatible with infarction. Fluid within the sinuses/ mastoids is not seen. 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
[2024-03-08 18:38] LABS: Absolute Eosinophils 0.2 K/uL (0-0.5); Absolute Lymphocytes (CBC) 1.7 K/uL (0.7-4.9); Absolute Monocytes 0.8 K/uL (0.1-1.3); Absolute Neutrophil 5.7 K/uL (1.8-8.0); Basophils % 0.5 % (0-1.3); Eosinophils % 2.2 % (0-4.4); Hematocrit 39.2 % (39.6-49.0); Hemoglobin 13.3 g/dL (13.6-17.9); Lymphocytes % 19.9 % (15.3-44.8); MCH 32.9 pg (27.0-35.0); MCHC 33.9 g/dL (32.0-36.0); MCV 97.1 fL (80-100); Monocytes % 9.8 % (3.3-12.3); Neutrophils % 67.6 % (41.7-73.7); Nucleated Red Blood Cells % 0.4 % (0-0); Platelets 232 thou/uL (152-406); RBC Red Blood Cell Count 4.03 M/uL (4.33-5.43); Red Cell Distribution Width 14.4 % (12.1-15.2)
[2024-03-08 18:44] LABS: PTT, Activated Partial Thromb 31.2 SECONDS (24.3-36.9); Protime INR 1.09
[2024-03-08 18:54] LABS: Sqamous Epithelial <5 /HPF (None Seen); Urine Bacteria None Seen /HPF (<20); Urine Microscopic Reflex YN ORDER UMIC; Urine Mucus Slight /HPF (None Seen); Urine RBC 21-50 /HPF (None Seen); Urine WBC <5 /HPF (<5)
[2024-03-08 18:55] LABS: Specific Gravity 1.025 (1.005-1.030); Urine Bilirubin NEGATIVE (Negative); Urine Blood Trace (Negative); Urine Clarity Clear (Clear); Urine Color Yellow (Yellow); Urine Glucose NEGATIVE (Negative); Urine Ketones NEGATIVE (Negative); Urine Nitrite NEGATIVE (Negative); Urine Protein TRACE (Negative); Urine Urobilinogen Normal (Normal)
[2024-03-08 18:58] LABS: Albumin 3.2 g/dL (3.4-5.0); Anion Gap 6.4 mEq/L (5.0-15.0); Bilirubin Total 1.3 mg/dL (0.2-1.0); Globulin 3.3 g/dL (2.3-3.5); Potassium 3.4 mEq/L (3.5-5.1); Protein, Total 6.5 g/dL (6.4-8.2)
[2024-03-08 18:59] LABS: SARS-CoV-2 Antigen CONTROL BLUE LINE VIS/BG OK; SARS-CoV-2 Antigen Rapid Res Negative (Negative)
--- NOTE | 2024-03-08 19:07 | RAD REPORT ---
[facility] CLINICAL HISTORY: Chest pain COMPARISON: January 2024 FINDINGS: Chronic elevation right hemidiaphragm Scarring or subsegmental atelectasis right lung base Left lung appears clear. Heart is mildly enlarged
--- NOTE | 2024-03-08 19:17 | ER ---
Nurse's Notes [facility] Name: Justo Quinn Age: 89 yrs Sex: Male : 1935 Arrival Date: 03/08/2024 Time: 17:36 Bed 7 Private MD: Diagnosis: Acute CVA, altered mental status Presentation: 03/08 17:54 Chief complaint: EMS states: "toned out for AMS more than usual from [facility]. Pt mb9 is usually a little confused at baseline. Pt denies pain.". Coronavirus screen: At this time, the client does not indicate any symptoms associated with coronavirus-19. Ebola Screen: No symptoms or risks identified at this time. Initial Sepsis Screen: Does the patient meet any 2 criteria? No. Patient's initial sepsis screen is negative. Does the patient have a suspected source of infection? No. Patient's initial sepsis screen is negative. Risk Assessment: Do you want to hurt yourself or someone else? Patient reports no desire to harm self or others. Onset of symptoms was March 08, 2024. 17:54 Method Of Arrival: EMS: [facility] mb9 17:54 Acuity: MINERVA 2 mb9 Triage Assessment: 17:58 General: Appears in no apparent distress. Behavior is agitated. Pain: Denies pain. mb9 EENT: No signs and/or symptoms were reported regarding the EENT system. Neuro: Level of Consciousness is awake, confused, Oriented to none. Cardiovascular: Patient's skin is warm and dry. Respiratory: Airway is patent Respiratory effort is even, unlabored, Respiratory pattern is regular, symmetrical. GI: No signs and/or symptoms were reported involving the gastrointestinal system. : No signs and/or symptoms were reported regarding the genitourinary system. Derm: Skin is pink, warm \\T\\ dry. Musculoskeletal: Range of motion: intact in all extremities. Historical: - Allergies: 17:55 No Known Allergies; mb9 - Home Meds: 17:55 metoprolol tartrate 25 mg Oral tab 1 tab 2 times per day [Active]; losartan 25 mg Oral mb9 tab 1 tab once daily [Active]; tamsulosin 0.4 mg Oral cap 1 cap once daily [Active]; - PMHx: 17:55 Alzheimer's disease; Anxiety; BPH; Dementia; diabetes mellitus; Gout; mb9 Hypercholesterolemia; - PSHx: 17:55 None; mb9 - Immunization history:: Adult Immunizations up to date. - Infectious Disease History:: Denies. - Social history:: Smoking status: Patient denies any tobacco usage or history of. Screenin:00 [facility] ED Fall Risk Assessment (Adult) History of falling in the last 3 months, mb9 including since admission No falls in past 3 months (0 pts) Confusion or Disorientation Yes (5 pts) Intoxicated or Sedated No (0 pts) Impaired Gait No (0 pts) Mobility Assist Device Used No (0 pt) Altered Elimination No (0 pt) Score/Fall Risk Level 3 or more points = High Risk Oriented to surroundings, Maintained a safe environment, Educated pt \\T\\ family on fall prevention, incl call for assistance when getting out of bed, Assessed \\T\\ reinforced patient's understanding of fall precautions. Abuse screen: Denies threats or abuse. Nutritional screening: No deficits noted. Tuberculosis screening: No symptoms or risk factors identified. Assessment: 18:06 Reassessment: see triage assessment. mb9 19:00 General: Appears in no apparent distress. comfortable, Behavior is calm, cooperative, jw7 appropriate for age. Pain: Denies pain. Neuro: Level of Consciousness is awake, alert, obeys commands, confused, Oriented to person, place. Cardiovascular: Heart tones S1 S2 present Capillary refill < 3 seconds Patient's skin is warm and dry. Respiratory: Airway is patent Trachea midline Respiratory effort is even, unlabored, Respiratory pattern is regular, symmetrical, Breath sounds are clear bilaterally. GI: Abdomen is round non-distended, Bowel sounds present X 4 quads. Abd is soft and non tender X 4 quads. : No deficits noted. No signs and/or symptoms were reported regarding the genitourinary system. EENT: No deficits noted. No signs and/or symptoms were reported regarding the EENT system. Derm: Skin is intact, is healthy with good turgor, Skin is dry, Skin is normal, Skin temperature is warm. Musculoskeletal: Circulation, motion, and sensation intact. Range of motion: intact in all extremities. 20:00 Reassessment: Patient appears in no apparent distress at this time. No changes from jw7 previously documented assessment. Patient and/or family updated on plan of care and expected duration. Pain level reassessed. 21:00 Reassessment: Patient appears in no apparent distress at this time. No changes from [facility] previously documented assessment. Patient and/or family updated on plan of care and expected duration. Pain level reassessed. 22:00 Reassessment: Patient appears in no apparent distress at this time. No changes from 7 previously documented assessment. Patient and/or family updated on plan of care and expected duration. Pain level reassessed. Vital Signs: 18:00 BP 130 / 78; Pulse 78; Resp 18; Temp 98; Pulse Ox 100% on R/A; Weight 95.25 kg; Height mb9 6 ft. 0 in. ; 18:59 BP 166 / 95; Pulse 81; Resp 18; Pulse Ox 96% on R/A; mb9 19:00 BP 169 / 103; Pulse 82; Resp 18 S; Pulse Ox 95% on R/A; jw7 20:00 BP 162 / 99; Pulse 76; Resp 17 S; Pulse Ox 94% on R/A; jw7 20:30 BP 167 / 94; Pulse 79; Resp 16 S; Pulse Ox 95% on R/A; jw7 21:30 BP 135 / 77; Pulse 77; Resp 15 S; Pulse Ox 96% on R/A; jw7 22:00 BP 140 / 87; Pulse 79; Resp 15 S; Pulse Ox 95% on R/A; jw7 18:00 Body Mass Index 28.48 (95.25 kg, 182.88 cm) mb9 ED Course: 17:54 Patient arrived in ED. mb9 17:54 Jose David Chávez MD is Attending Physician. sp3 17:54 Arm band placed on. mb9 17:55 Triage completed. mb9 17:57 Cornelia Mcneil RN is Primary Nurse. mb9 17:58 Inserted saline lock: 20 gauge in right antecubital area, using aseptic technique. mb9 Blood collected. 17:59 Placed in gown. Bed in low position. Call light in reach. Side rails up X 1. Provided mb9 Education on: press call light if needing anything. Client placed on continuous cardiac and pulse oximetry monitoring. NIBP monitoring applied. dealer sales manager on. Door closed. Noise minimized. Warm blanket given. 18:07 No provider procedures requiring assistance completed. mb9 18:13 CT Head Brain wo Cont In Process Unspecified. EDMS 18:31 Initial lab(s) drawn, by me, sent to lab. EKG done, by ED staff, reviewed by Jose David Chávez MD COVID swab sent to lab. Flu and/or RSV swab sent to lab. 18:32 Straight cath inserted, using sterile technique, 16 Fr. Returned clear yellow urine. mb9 Patient tolerated well. 18:37 Chest Single View XRAY In Process Unspecified. EDMS 19:06 Report given to JESSICA ESCOBEDO. mb9 19:16 Maykel Hilario MD is Hospitalizing Provider. sp3 22:20 Patient admitted, IV remains in place. jw7 Administered Medications: 21:28 Not Given (Duplicate Order): aspirinsuppository 300 mg WV once jj7 21:34 Drug: Aspirin PO Chewable Tablet 324 mg PO once; 81 mg tablets x 4 Route: PO; jw7 22:23 Follow up: Response: No adverse reaction jw7 Medication: 18:00 VIS not applicable for this client. mb9 Outcome: 19:16 Decision to Hospitalize by Provider. sp3 22:20 Admitted to Tele accompanied by tech, via stretcher, room 403, jw7 22:20 Condition: stable 22:20 Instructed on the need for admit, Demonstrated understanding of instructions, 22:23 Patient left the ED. jw7 Signatures: Dispatcher [employer] EDMS Jose David Chávez MD MD sp3 Fawn Blevins RN JESSICA jwCornelia Amador RN RN [email or web address] Jasmin Marcelo RN jj7 Corrections: (The following items were deleted from the chart) 17:57 17:54 Chief complaint: EMS states: "toned out for AMS more than usual. Pt is usually a mb9 little confused at baseline. Pt denies pain." mb9
--- NOTE | 2024-03-08 19:17 | EDPHYS ---
Physician Documentation [facility] Name: Justo Quinn Age: 89 yrs Sex: Male : 1935 Arrival Date: 03/08/2024 Time: 17:36 Bed 7 Private MD: ED Physician Jose David Chávez HPI: 03/08 18:43 This 89 yrs old Male presents to ER via EMS with complaints of Altered Mental Status. sp3 18:43 89-year-old male with a history of [place]'s dementia, diabetes, hyperlipidemia, sp3 gout, prior UTIs now presents from the assisted living facility due to worsening mental status changes and concerns for infection or other abnormality by family who sees him on a regular basis. PCP was concerned about UTI given the process of getting outpatient urine analysis however they were unable to obtain a sample. No fever reported. No trauma reported. Remainder of ROS, history of physical severely limited secondary to age.. Historical: - Allergies: 17:55 No Known Allergies; mb9 - Home Meds: 17:55 metoprolol tartrate 25 mg Oral tab 1 tab 2 times per day [Active]; losartan 25 mg Oral mb9 tab 1 tab once daily [Active]; tamsulosin 0.4 mg Oral cap 1 cap once daily [Active]; - PMHx: 17:55 Alzheimer's disease; Anxiety; BPH; Dementia; diabetes mellitus; Gout; mb9 Hypercholesterolemia; - PSHx: 17:55 None; mb9 - Immunization history:: Adult Immunizations up to date. - Infectious Disease History:: Denies. - Social history:: Smoking status: Patient denies any tobacco usage or history of. ROS: 18:47 Unable to obtain ROS due to altered mental status, baseline dementia, sp3 Exam: 18:47 Head/Face: Normocephalic, atraumatic. Eyes: Pupils equal round and reactive to light, sp3 extra-ocular motions intact. Lids and lashes normal. Conjunctiva and sclera are non-icteric and not injected. Cornea within normal limits. Periorbital areas with no swelling, redness, or edema. Chest/axilla: Normal chest wall appearance and motion. Nontender with no deformity. No lesions are appreciated. Cardiovascular: Regular rate and rhythm with a normal S1 and S2. No gallops, murmurs, or rubs. Normal PMI, no JVD. No pulse deficits. Respiratory: Lungs have equal breath sounds bilaterally, clear to auscultation and percussion. No rales, rhonchi or wheezes noted. No increased work of breathing, no retractions or nasal flaring. Skin: Warm, dry with normal turgor. Normal color with no rashes, no lesions, and no evidence of cellulitis. 18:47 Unable to obtain exam due to altered mental status, baseline dementia, 18:51 ECG was reviewed by the Attending Physician. EKG demonstrates normal sinus rhythm with sp3 first-degree AV block with IL interval 214, right bundle branch block nonspecific diffuse ST's ST changes without evidence of acute ischemia. Vital Signs: 18:00 BP 130 / 78; Pulse 78; Resp 18; Temp 98; Pulse Ox 100% on R/A; Weight 95.25 kg; Height mb9 6 ft. 0 in. ; 18:59 BP 166 / 95; Pulse 81; Resp 18; Pulse Ox 96% on R/A; mb9 19:00 BP 169 / 103; Pulse 82; Resp 18 S; Pulse Ox 95% on R/A; jw7 20:00 BP 162 / 99; Pulse 76; Resp 17 S; Pulse Ox 94% on R/A; jw7 20:30 BP 167 / 94; Pulse 79; Resp 16 S; Pulse Ox 95% on R/A; jw7 21:30 BP 135 / 77; Pulse 77; Resp 15 S; Pulse Ox 96% on R/A; jw7 22:00 BP 140 / 87; Pulse 79; Resp 15 S; Pulse Ox 95% on R/A; jw7 18:00 Body Mass Index 28.48 (95.25 kg, 182.88 cm) mb9 MDM: 17:57 Patient medically screened. sp3 18:49 Data reviewed: vital signs, nurses notes, EMS record, old medical records, lab test sp3 result(s), EKG, radiologic studies. ED course: 89-year-old male with altered mental status above his baseline. Broad differential exists including UTI, delirium, electrolyte abnormality, pneumonia, early sepsis, ACS, TIA/CVA spectrum, among others. Patient will likely need admission. Workup includes CT scan of the head, urine analysis, cultures, full sepsis workup, laboratory values and general supportive care. Further medications will be added as indicated.. 19:14 ED course: . sp3 19:15 ED course: 6.2 cm area of acute infarction noted in the occipital lobe. This likely sp3 explains patient's change in mental status. I discussed with patient's family and conservative treatment is preferred. Will treat with rectal aspirin and we will admit with neurology consultation to the hospitalist service. Patient is not a candidate for aggressive intervention. 03/08 17:58 Order name: Blood Culture Adult (2) sp3 03/08 17:58 Order name: CBC with Diff; Complete Time: 19:03 sp3 03/08 17:58 Order name: CMP; Complete Time: 19:03 3 03/08 17:58 Order name: Lactate w/ 2H reflex if indic.; Complete Time: 19:03 3 03/08 17:58 Order name: Protime (+inr); Complete Time: 19:03 3 03/08 17:58 Order name: Ptt, Activated; Complete Time: 19:03 3 03/08 17:58 Order name: Urinalysis w/ reflexes; Complete Time: 19:03 3 03/08 17:58 Order name: Flu; Complete Time: 19:03 3 03/08 17:58 Order name: SARS RAPID; Complete Time: 19:03 3 03/08 17:59 Order name: Troponin High Sensitivity; Complete Time: 19:03 3 03/08 19:51 Order name: Urinalysis w/ reflexes EDMS 03/08 19:51 Order name: CBC with Automated Diff EDMS 03/08 19:51 Order name: CBC with Automated Diff EDMS 03/08 19:51 Order name: Comprehensive Metabolic Panel EDMS 03/08 19:51 Order name: Comprehensive Metabolic Panel EDMS 03/08 17:58 Order name: Chest Single View XRAY; Complete Time: 19:09 3 03/08 17:58 Order name: CT Head Brain wo Cont; Complete Time: 19:03 3 03/08 17:58 Order name: EKG; Complete Time: 17:59 3 03/08 17:58 Order name: Accucheck; Complete Time: 18:04 3 03/08 17:58 Order name: Cardiac monitoring; Complete Time: 18:04 3 03/08 17:58 Order name: EKG - Nurse/Tech; Complete Time: 18:31 sp3 03/08 17:58 Order name: IV Saline Lock - Large Bore; Complete Time: 18:04 3 03/08 17:58 Order name: Labs collected and sent; Complete Time: 18:04 3 03/08 17:58 Order name: O2 Per Protocol; Complete Time: 18:04 3 03/08 17:58 Order name: O2 Sat Monitoring; Complete Time: 18:04 3 03/08 17:58 Order name: Vital Signs; Complete Time: 18:04 3 03/08 18:32 Order name: Straight Cath - Urine; Complete Time: 18:32 mb9 Administered Medications: 21:28 Not Given (Duplicate Order): aspirinsuppository 300 mg IL once jj7 21:34 Drug: Aspirin PO Chewable Tablet 324 mg PO once; 81 mg tablets x 4 Route: PO; jw7 22:23 Follow up: Response: No adverse reaction jw7 Disposition Summary: 03/08/24 19:16 Hospitalization Ordered Notes: Hospitalization Status: Inpatient Admission sp3 Provider: Maykel Hilario sp3 Location: Telemetry/[facility] (Inpatient) sp3 Condition: Stable sp3 Problem: an acute exacerbation sp3 Symptoms: have worsened sp3 Bed/Room Type: Standard sp3 Room Assignment: 403(03/08/24 21:31) vk Diagnosis - Acute CVA, altered mental status sp3 Forms: - Medication Reconciliation Form sp3 - SBAR form sp3 - Leadership Thank You Letter sp3 Signatures: Dispatcher [employer] Kimberly Lincoln RN RN kl Patel, Setul, MD MD sp3 Fawn Blevins RN RN jw7 Jasmin Marcelo RN RN jj7 Cornelia Mcneil RN RN mb9 Peyton Antonio Corrections: (The following items were deleted from the chart) 17:59 17:59 BLOOD CULTURE*+BA.LAB.BRZ ordered. EDMS EDMS 17:59 17:59 CBC+H.LAB.BRZ ordered. EDMS EDMS 17:59 17:59 COMPREHENSIVE METABOLIC PANEL+C.LAB.BRZ ordered. EDMS EDMS 17:59 17:59 LACTATE+C.LAB.BRZ ordered. EDMS EDMS 17:59 17:59 PROTIME (+INR)+COAG.LAB.BRZ ordered. EDMS EDMS 17:59 17:59 PTT, ACTIVATED+COAG.LAB.BRZ ordered. EDMS EDMS 17:59 17:59 Urinalysis+U.LAB.BRZ ordered. EDMS EDMS 17:59 17:59 Influenza Screen (A \T\ B)+BA.LAB.BRZ ordered. EDMS EDMS 17:59 17:59 SARS-COV-2 Antigen Rapid+I.LAB.BRZ ordered. EDMS EDMS 20:04 19:16 sp3 kl 21:31 20:04 431 kl vk
--- NOTE | 2024-03-08 19:46 | P.HP ---
Certification for Inpatient Patient admitted to: Inpatient With expected LOS: >2 Midnights Practitioner: I am a practitioner with admitting privileges, knowledge of patient current condition, hospital course, and medical plan of care. Services: Services provided to patient in accordance with Admission requirements found in Title 42 Section 412.3 of the Code of Federal Regulations Patient History Date of Service: 03/09/24 Reason for admission: Weakness History of Present Illness: 89 yrs old Male with past medical history of dementia, hypertension, anxiety, BPH, diabetes, gout, hyperlipidemia who was living in an assisted living brought to ER with worsening of mental status which has been going on for the last 2 to 3 days. He has history of prior UTIs. Denies any fever or chills. No nausea vomiting or diarrhea. No trauma. Denies any focal weakness. Complains of generalized weakness. Patient looks confused. Patient was assessed in the ER and was found to have possible acute stroke and was admitted for further management Allergies No Known Allergies Allergy (Unverified 04/22/13 17:06) Home medications list reviewed: Yes Home Medications: Aspirin Chewable [Aspirin Chewable*] 1 tab PO BEDTIME 12/04/16 Atorvastatin Calcium [Lipitor] 20 mg PO BEDTIME 12/04/16 Citalopram Hydrobromide [Celexa] 1 tab PO DAILY 12/04/16 Gabapentin [Neurontin*] 800 mg PO BEDTIME 12/04/16 Metformin HCl [Glucophage*] 1 tab PO BID 12/04/16 Metoprolol Tartrate 1 tab PO BID 12/04/16 lisinopriL [Prinivil*] 1 tab PO DAILY 12/04/16 Ascorbic Acid [Vitamin C*] 1,000 mg PO DAILY 12/05/16 Cholecalciferol (Vitamin D3) [Vitamin D3] 1 tab PO DAILY 12/05/16 Sulfamethoxazole/Trimethoprim [Bactrim Ds Tablet] 1 each PO BID #14 tablet 12/07/16 - Past Medical/Surgical History Diabetic: Yes Past Medical History: Reviewed- Non-Contributory -: HTN -: HIGH CHOLESTEROL -: NIDDM -: SKIN CA -: URI Past Surgical History: Reviewed- Non-Contributory -: BACK SX -: NECK SX - Social History Smoking Status: Never smoker Alcohol use: No Caffeine use: Yes Review of Systems is unable to be obtained Physical Examination - Vital Signs Temperature: 98.2 F Blood Pressure: 130/78 Pulse: 78 Respirations: 18 Pulse Ox (%): 94 - Physical Exam General: Alert, In no apparent distress, Demented, Confused HEENT: Atraumatic, Normocephalic Neck: Supple, 2+ carotid pulse no bruit Respiratory: Clear to auscultation bilaterally, Normal air movement Cardiovascular: Regular rate/rhythm, Normal S1 S2 Capillary refill: <2 Seconds Gastrointestinal: Soft and benign, W/out hepatosplenomegaly Musculoskeletal: No clubbing, No swelling Integumentary: No rashes, No breakdown Neurological: Abnormal gait, Abnormal strength, Dementia Lymphatics: No axilla or inguinal lymphadenopathy - Studies Laboratory Data (last 24 hrs) 03/08/24 03/08/24 03/08/24 18:21 18:21 18:21 WBC 8.40 Hgb 13.3 L Hct 39.2 L Plt Count 232 PT 12.0 INR 1.09 APTT 31.2 Sodium 141 Potassium 3.4 L BUN 16 Creatinine 1.15 Glucose 102 Total Bilirubin 1.3 H AST 11 L ALT 22 Alkaline Phosphatase 94 Microbiology Data (last 24 hrs): 03/08/24 18:18 Nasopharnyx Influenza Type A Antigen Screen - Final 03/08/24 18:18 Nasopharnyx Influenza Type B Antigen Screen - Final Imagings Data: IMPRESSION: 6.2 centimeter acute infarct right occipital lobe Assessment and Plan - Problems (Diagnosis) (1) Altered mental status Onset Date: 12/07/16 Current Visit: No Status: Acute Plan: CVA/TIA Started on aspirin and statin CT findings noted MRI brain ordered Monitor neuro vital signs Monitor under telemetry Neurology consulted Stroke workup acute encephalopathy possibly metabolic versus ischemic Monitor neuro vital signs closely Will get a UA Dementia Continue home medications and supportive management Diabetes Insulin sliding scale Accu-Chek before every meal and at bedtime Hypertension Antihypertensives titrated Continue home medications and titrate as needed Hyperlipidemia Continue statin GI/DVT prophylaxis Advanced directive full code Discharge Plan: Care Home - Advance Directives Does patient have a Living Will: No Does patient have a Durable POA for Healthcare: No - Code Status/Comfort Care Code Status: Full Code Time Spent Managing Pts Care (In Minutes): 48
[2024-03-08] MEDS ORDERED: ACETAMINOPHEN 325 MG TABLET PO PRN (19:47)
[2024-03-08] MEDS ORDERED: ALBUTEROL 2.5 MG/3 ML NEB SOL NEB PRN (19:47)
[2024-03-08] MEDS ORDERED: ONDANSETRON 4 MG/2 ML VIAL IV PRN (19:47)
[2024-03-08] MEDS: NA CHLORIDE 0.9% 1,000 ML IV SCH (20:00)
[2024-03-08] MEDS ORDERED: ASPIRIN 81 MG CHEWABLE TABLET ONE (21:29)
[2024-03-09] MEDS: NA CHLORIDE 0.9% 1,000 ML IV SCH (02:00)
[2024-03-09 02:02] LABS: Absolute Basophils 0.1 K/uL (0-0.5); Absolute Eosinophils 0.2 K/uL (0-0.5); Absolute Lymphocytes (CBC) 2.1 K/uL (0.7-4.9); Absolute Monocytes 0.8 K/uL (0.1-1.3); Absolute Neutrophil 5.1 K/uL (1.8-8.0); Basophils % 0.8 % (0-1.3); Eosinophils % 2.6 % (0-4.4); Hematocrit 36.6 % (39.6-49.0); Hemoglobin 12.7 g/dL (13.6-17.9); Lymphocytes % 24.8 % (15.3-44.8); MCH 33.4 pg (27.0-35.0); MCHC 34.7 g/dL (32.0-36.0); MCV 96.1 fL (80-100); MPV 7.8 fL (7.6-11.3); Monocytes % 10.2 % (3.3-12.3); Neutrophils % 61.6 % (41.7-73.7); Platelets 214 thou/uL (152-406); RBC Red Blood Cell Count 3.81 M/uL (4.33-5.43); Red Cell Distribution Width 14.8 % (12.1-15.2)
[2024-03-09 02:12] VITALS: BMI 28.5
[2024-03-09 02:17] LABS: Anion Gap 5.2 mEq/L (5.0-15.0); Bilirubin Total 1.6 mg/dL (0.2-1.0); Potassium 3.2 mEq/L (3.5-5.1)
--- NOTE | 2024-03-09 09:44 | RAD REPORT ---
EXAM DESCRIPTION: US - CP - 03/09/2024 5:28 am CLINICAL HISTORY: CVA COMPARISON: CT HEAD CSPINE MPR WO CONTRAST dated 06/26/2015 TECHNIQUE: Real-time sonographic grayscale, color duplex, and spectral wave Doppler evaluation of th e left carotid system was performed. FINDINGS: Images of the left neck arterial structures were obtained. Technologist cites patient nonc ooperation, therefore the right neck was not scanned. Normal high resistance waveforms are noted in the left external carotid artery. The left common carot id artery and internal carotid artery show normal low resistance waveforms. Mild to moderate burden of mildly irregular calcified atherosclerotic plaque plaque formation is seen . Peak systolic velocity less than 125 cm/ sec on the left. ICA/CCA peak systolic 1.4. Antegrade flow seen in in the left vertebral artery. IMPRESSION: [id number] left carotid bulb atherosclerotic changes noted. No evidence of a hemodynamically significant stenosis on the left. The right neck arterial structures were not evaluated. Evaluation of carotid artery stenosis, if any, is reported based on consensus recommendations of the Society of Radiologists in Ultrasound (Alex et al., Radiology, 2003)
[2024-03-09] MEDS: METOPROLOL TAR 25 MG TAB PO SCH (10:27)
[2024-03-09] MEDS: ENOXAPARIN 40 MG/0.4 ML SQ SCH (10:27)
[2024-03-09] MEDS: POTASSIUM CL SA 10 MEQ TAB PO ONE (10:27)
--- NOTE | 2024-03-09 12:44 | ECHO ---
HEIGHT: 6 ft 0 in WEIGHT: 210 lb 0 oz DATE OF STUDY: 03/09/[address]: Jairo Hilario DO 2-DIMENSIONAL: YES M.MODE: YES DOPPLER: YES COLOR FLOW: YES TDS: PORTABLE: YES DEFINITY: BUBBLE STUDY: DIAGNOSIS: STROKE CARDIAC HISTORY: CATHERIZATION: NO SURGERY: NO PROSTHETIC VALVE: NO PACEMAKER: NO MEASUREMENTS (cm) DIASTOLIC (NORMALS) SYSTOLIC (NORMALS) IVSd 1.2 (0.6-1.2) LA Diam 2.4 (1.9-4.0) LVEF 60-65% LVIDd 4.8 (3.5-5.7) LVIDs 3.6 (2.0-3.5) %FS 25% LVPWd 1.4 (0.6-1.2) Ao Diam 3.1 (2.0-3.7) 2 DIMENSIONAL ASSESSMENT: RIGHT ATRIUM: NORMAL LEFT ATRIUM: NORMAL RIGHT VENTRICLE: NORMAL LEFT VENTRICLE: NORMAL TRICUSPID VALVE: TRACE TRICUSPID REGURGITATION MITRAL VALVE: NORMAL PULMONIC VALVE: NORMAL AORTIC VALVE: TRACE AORTIC INSUFFICIENCY PERICARDIAL EFFUSION: NONE AORTIC ROOT: NORMAL LEFT VENTRICULAR WALL MOTION: NORMAL DOPPLER/COLOR FLOW: GRADE I DIASTOLIC DYSFUNCTION COMMENTS: 1. NORMAL LEFT VENTRICULAR SYSTOLIC FUNCTION, EJECTION FRACTION 60-65%, NORMAL WALL MOTION 2. GRADE I DIASTIOLIC DYSFUNCTION TECHNOLOGIST: MARYAM LYONS
--- NOTE | 2024-03-09 20:15 | RAD REPORT ---
EXAM DESCRIPTION: MRI - Brain Wo Cont - 03/09/2024 8:04 pm CLINICAL HISTORY: CVA Headache, drowsiness, CVA symptomology COMPARISON: <Comparisons> TECHNIQUE: Multi-sequence, multiplanar MR imaging of the brain was performed without contrast. FINDINGS: No intracranial hemorrhage, hydrocephalus or extra-axial fluid collections.Moderate conflu ent T2/FLAIR hyperintensity in the periventricular and deep white matter is present compatible with c hronic microvascular ischemic changes. No edema or shift of midline structures. No findings to suspec t brain mass. There is a large infarct in the medial right occipital lobe measuring 9 cm in anterior- posterior dimension. This is most compatible with right IMPLEMENTATION PROJECT COORDINATOR territory infarct. Small infarct also pre sent anteromedial right cerebellar hemisphere measuring 8 mm. Midline structures are normally formed. Mastoid air cells and paranasal sinuses are clear. IMPRESSION: 9 cm nonhemorrhagic acute CVA is seen in the distribution of the right posterior cerebra l artery involving the medial right occipital lobe.
[2024-03-09] MEDS: ATORVASTATIN 20 MG TAB PO SCH (20:19)
[2024-03-09] MEDS: ASPIRIN 81 MG CHEWABLE TABLET PO SCH (20:19)
--- NOTE | 2024-03-09 20:40 | P.PN ---
Subjective Date of Service: 03/09/24 Chief Complaint: Weakness family at bedside, reports strokelike symptoms over the last week, confusion, incontinence. ECHO being performed at bedside, plan for PT eval today - Physical Exam General: Alert, In no apparent distress, Demented, Confused HEENT: Atraumatic, Normocephalic Neck: Supple, 2+ carotid pulse no bruit Respiratory: Clear to auscultation bilaterally, Normal air movement Cardiovascular: Regular rate/rhythm, Normal S1 S2 Capillary refill: <2 Seconds Gastrointestinal: Soft and benign, W/out hepatosplenomegaly Musculoskeletal: No clubbing, No swelling Integumentary: No rashes, No breakdown Neurological: Abnormal gait, Abnormal strength, Dementia Lymphatics: No axilla or inguinal lymphadenopathy <Luz Varela - Last Filed: 03/09/24 20:44> Date of Service: 03/09/24 <Tremaine Gómez - Last Filed: 03/28/24 18:08> Review of Systems per HPI <Luz Varela - Last Filed: 03/09/24 20:44> Physical Examination - Vital Signs Temperature: 97.3 F Blood Pressure: 172/85 Pulse: 74 Respirations: 20 Pulse Ox (%): 95 - Studies Microbiology Data (last 24 hrs): 03/08/24 18:18 Nasopharnyx Influenza Type A Antigen Screen - Final 03/08/24 18:18 Nasopharnyx Influenza Type B Antigen Screen - Final <Luz Varela - Last Filed: 03/09/24 20:44> Assessment And Plan - Plan Assessment/Plan CVA/TIA Started on aspirin and statin CT findings noted MRI brain ordered Monitor neuro vital signs Monitor under telemetry Neurology consulted Stroke workup MRI IMPRESSION: 9 cm nonhemorrhagic acute CVA is seen in the distribution of the right posterior cerebral artery involving the medial right occipital lobe. ECHO . NORMAL LEFT VENTRICULAR SYSTOLIC FUNCTION, EJECTION FRACTION 60-65%, NORMAL WALL MOTION 2. GRADE I DIASTIOLIC DYSFUNCTION Speech eval soft and bite sized diet and thin liquids via straw or spoon as tolerated. acute encephalopathy possibly metabolic versus ischemic Monitor neuro vital signs closely Will get a UA Dementia Continue home medications and supportive management Diabetes Insulin sliding scale Accu-Chek before every meal and at bedtime Hypertension Antihypertensives titrated Continue home medications and titrate as needed Hyperlipidemia Continue statin GI/DVT prophylaxis Advanced directive full code - Code Status/Comfort Care Code Status: Full Code Critical Care: No Time Spent Managing PTS Care (In Minutes): 35 <Luz Varela - Last Filed: 03/09/24 20:44> Date of Service: 03/09/24 Patient was seen and examined. Events of the last 24 hours have been noted. Spoke with with DARSHAN regarding patient's clinical picture after evaluating and examining the patient independently. I performed a substantial part of the MDM during this patient's care today. I personally made or approved the documented management plan and acknowledge its risk of complications. I agree with the findings and documentation provided in the DARSHAN's notes. <Tremaine Gómez - Last Filed: 03/28/24 18:08>
[2024-03-10 05:23] VITALS: TEMP 96.9
--- NOTE | 2024-03-10 08:06 | P.PN ---
Subjective Date of Service: 03/10/24 Chief Complaint: Weakness family at bedside, reports strokelike symptoms over the last week, confusion, incontinence. ECHO done, plan for PT/speech to follow, fall precautions - Physical Exam General: Alert, In no apparent distress, Demented, Confused HEENT: Atraumatic, Normocephalic Neck: Supple, 2+ carotid pulse no bruit Respiratory: Clear to auscultation bilaterally, Normal air movement Cardiovascular: Regular rate/rhythm, Normal S1 S2 Capillary refill: <2 Seconds Gastrointestinal: Soft and benign, W/out hepatosplenomegaly Musculoskeletal: No clubbing, No swelling Integumentary: No rashes, No breakdown Neurological: Abnormal gait, Abnormal strength, Dementia Lymphatics: No axilla or inguinal lymphadenopathy Review of Systems per HPI Physical Examination - Vital Signs Temperature: 96.9 F Blood Pressure: 165/78 Pulse: 72 Respirations: 20 Pulse Ox (%): 95 Assessment And Plan - Plan Assessment/Plan nonhemorrhagic acute CVA Started on aspirin and statin CT findings noted MRI brain ordered Monitor neuro vital signs Monitor under telemetry Neurology consulted Stroke workup MRI IMPRESSION: 9 cm nonhemorrhagic acute CVA is seen in the distribution of the right posterior cerebral artery involving the medial right occipital lobe. ECHO . NORMAL LEFT VENTRICULAR SYSTOLIC FUNCTION, EJECTION FRACTION 60-65%, NORMAL WALL MOTION 2. GRADE I DIASTIOLIC DYSFUNCTION Speech eval soft and bite sized diet and thin liquids via straw or spoon as tolerated. acute encephalopathy possibly metabolic versus ischemic Monitor neuro vital signs closely Will get a UA Dementia Continue home medications and supportive management Diabetes Insulin sliding scale Accu-Chek before every meal and at bedtime Hypertension Antihypertensives titrated Continue home medications and titrate as needed Hyperlipidemia Continue statin GI/DVT prophylaxis Advanced directive full code Discharge Plan: [facility] Critical Care: No Time Spent Managing PTS Care (In Minutes): 35
[2024-03-10 10:03] VITALS: O2SAT 95
[2024-03-10 10:38] VITALS: BP 151/91
--- NOTE | 2024-03-10 16:56 | EKG ---
Test Date: 2024-03-08 Test Time: 18:38:08 Sales Product Specialist: DASHA MEASUREMENT RESULTS: Intervals: Rate: 79 MI: 214 QRSD: 150 QT: 412 QTc: 472 Abie: P: 42 MI: 214 QRS: -77 T: 53 INTERPRETIVE STATEMENTS: Sinus rhythm with 1st degree AV block Right bundle branch block Left anterior fascicular block Bifascicular block Abnormal ECG Compared to ECG 01/16/2024 17:02:34 Left ventricular hypertrophy no longer present Early repolarization no longer present Bifascicular block still present Electronically Signed On 03-10-24 16:49:58 CDT by Christian Parker
--- NOTE | 2024-03-11 14:13 | P.DS ---
Admission Date: 03/08/24 Discharge Date: 03/10/24 Reason for Admission: Weakness Brief History of Present Illness: 89 yrs old Male with past medical history of dementia, hypertension, anxiety, BPH, diabetes, gout, hyperlipidemia who was living in an assisted living brought to ER with worsening of mental status which has been going on for the last 2 to 3 days. He has history of prior UTIs. Denies any fever or chills. No nausea vomiting or diarrhea. No trauma. Denies any focal weakness. Complains of generalized weakness. Patient looks confused. Patient was assessed in the ER and was found to have possible acute stroke and was admitted for further management General: Alert, In no apparent distress, Demented, Confused HEENT: Atraumatic, Normocephalic Neck: Supple, 2+ carotid pulse no bruit Respiratory: Clear to auscultation bilaterally, Normal air movement Cardiovascular: Regular rate/rhythm, Normal S1 S2 Capillary refill: <2 Seconds Gastrointestinal: Soft and benign, W/out hepatosplenomegaly Musculoskeletal: No clubbing, No swelling Integumentary: No rashes, No breakdown Neurological: Abnormal gait, Abnormal strength, Dementia Lymphatics: No axilla or inguinal lymphadenopathy Hospital Course: 89 yrs old Male with past medical history of dementia, hypertension, anxiety, BPH, diabetes, gout, hyperlipidemia who was living in an assisted living brought to ER with worsening of mental status which has been going on for the last 2 to 3 days. Was noted to have nonhemorrhagic acute CVA. Plan to [facility] to [facility] with home health Assessment nonhemorrhagic acute CVA.-Was evaluated by PT,, ambulation with a walker, with standby assist History of dementia fall precaution, plan to discharge with care General with home was evaluated by speech bite sized diet and thin liquids via straw or spoon as tolerated. Echo completed, Discharged on Plavix, aspirin, Lipitor Resume other home medication Continue home medicines as previously prescribed GOAL: Clear understanding of disease process INSTRUCTIONS: Physician Discharge Instructions: -Follow-up with PCP in 1 to 2 weeks -Please call Dr. Gómez at [phone] if any questions regarding hospital stay -Please call nursing station at [phone] if any nursing or medication questions -Return to the emergency room if symptoms worsen Diet: ADA, low sodium Activity: Fall precautions <Luz Varela - Last Filed: 03/11/24 14:08> Admission Date: 03/08/24 Discharge Date: 03/10/24 Hospital Course: Patient was seen and examined. Events of the last 24 hours have been noted. Spoke with with DARSHAN regarding patient's clinical picture after evaluating and examining the patient independently. I performed a substantial part of the MDM during this patient's care today. I personally made or approved the documented management plan and acknowledge its risk of complications. I agree with the findings and documentation provided in the DARSHAN's notes. <Tremaine Gómez - Last Filed: 03/28/24 18:08> Disposition: ROUTINE DISCHARGE Discharge Condition: GOOD Vital Signs/Physical Exam: Temp Pulse Resp BP Pulse Ox 96.9 F 72 20 151/91 H 95 03/10/24 08:05 03/10/24 10:34 03/10/24 08:05 03/10/24 10:34 03/10/24 08:05 Laboratory Data at Discharge: WBC 8.30 thou/uL (4.3-10.9) 03/09/24 01:43 Hgb 12.7 g/dL (13.6-17.9) L 03/09/24 01:43 Hct 36.6 % (39.6-49.0) L 03/09/24 01:43 Plt Count 214 thou/uL (152-406) 03/09/24 01:43 PT 12.0 SECONDS (9.5-12.5) 03/08/24 18:21 INR 1.09 03/08/24 18:21 APTT 31.2 SECONDS (24.3-36.9) 03/08/24 18:21 Sodium 139 mEq/L (136-145) 03/09/24 01:43 Potassium 3.2 mEq/L (3.5-5.1) L 03/09/24 01:43 BUN 16 mg/dL (7-18) 03/09/24 01:43 Creatinine 1.04 mg/dL (0.70-1.30) 03/09/24 01:43 Glucose 114 mg/dL (74-106) H 03/09/24 01:43 Total Bilirubin 1.6 mg/dL (0.2-1.0) H 03/09/24 01:43 AST 12 U/L (15-37) L 03/09/24 01:43 ALT 20 U/L (16-61) 03/09/24 01:43 Alkaline Phosphatase 84 U/L (45-117) 03/09/24 01:43 Triglycerides 142 mg/dL (<150) 03/10/24 05:40 Cholesterol 135 mg/dL (<200) 03/10/24 05:40 LDL Cholesterol Direct 67 mg/dL (100-129) L 03/09/24 01:43 HDL Cholesterol 39 mg/dL (40-60) L 03/10/24 05:40 Cholesterol/HDL Ratio 3.46 03/10/24 05:40 <Julio Cesar Varelay - Last Filed: 03/11/24 14:08> Vital Signs/Physical Exam: Temp Pulse Resp BP Pulse Ox 96.9 F 72 20 151/91 H 95 03/10/24 04:00 03/10/24 10:34 03/10/24 04:00 03/10/24 10:34 03/10/24 04:00 Laboratory Data at Discharge: WBC 8.30 thou/uL (4.3-10.9) 03/09/24 01:43 Hgb 12.7 g/dL (13.6-17.9) L 03/09/24 01:43 Hct 36.6 % (39.6-49.0) L 03/09/24 01:43 Plt Count 214 thou/uL (152-406) 03/09/24 01:43 PT 12.0 SECONDS (9.5-12.5) 03/08/24 18:21 INR 1.09 03/08/24 18:21 APTT 31.2 SECONDS (24.3-36.9) 03/08/24 18:21 Sodium 139 mEq/L (136-145) 03/09/24 01:43 Potassium 3.2 mEq/L (3.5-5.1) L 03/09/24 01:43 BUN 16 mg/dL (7-18) 03/09/24 01:43 Creatinine 1.04 mg/dL (0.70-1.30) 03/09/24 01:43 Glucose 114 mg/dL (74-106) H 03/09/24 01:43 Total Bilirubin 1.6 mg/dL (0.2-1.0) H 03/09/24 01:43 AST 12 U/L (15-37) L 03/09/24 01:43 ALT 20 U/L (16-61) 03/09/24 01:43 Alkaline Phosphatase 84 U/L (45-117) 03/09/24 01:43 Triglycerides 142 mg/dL (<150) 03/10/24 05:40 Cholesterol 135 mg/dL (<200) 03/10/24 05:40 LDL Cholesterol Direct 67 mg/dL (100-129) L 03/09/24 01:43 HDL Cholesterol 39 mg/dL (40-60) L 03/10/24 05:40 Cholesterol/HDL Ratio 3.46 03/10/24 05:40 <Tremaine Gómez - Last Filed: 03/28/24 18:08> Diet: AHA Activity: Fall precautions Time spent managing pt's care (in minutes): 55 <Luz Varela - Last Filed: 03/11/24 14:08> <Tremaine Gómez - Last Filed: 03/28/24 18:08> Home Medications: Metformin HCl [Glucophage*] 1 tab PO BID 12/04/16 Metoprolol Tartrate 1 tab PO BID 12/04/16 Cholecalciferol (Vitamin D3) [Vitamin D3] 1 tab PO DAILY 12/05/16 Allopurinol 200 mg PO DAILY 03/09/24 Divalproex ER [Depakote *ER] 1 tab PO DAILY 03/09/24 Docusate [Colace Cap] 200 mg PO DAILY PRN 03/09/24 Donepezil HCl 10 mg PO BEDTIME 03/09/24 Gabapentin [Neurontin] 200 mg PO DAILY PRN 03/09/24 Loratadine [Claritin] 10 mg PO DAILY 03/09/24 Losartan Potassium [Cozaar] 50 mg PO DAILY 03/09/24 Tamsulosin HCl [Flomax] 0.4 mg PO BEDTIME 03/09/24 Aspirin Chewable [Aspirin Chewable*] 2 tab PO BEDTIME #60 tab.chew 03/10/24 Atorvastatin Calcium [Lipitor] 40 mg PO BEDTIME #30 tab 03/10/24 Acetaminophen [Tylenol Extra Strength] 500 mg PO Q4H PRN 03/14/24 Albuterol Neb [Proventil 0.083% Neb Soln] 1 vial IH Q8H PRN 03/14/24 Brompheniramine/Pseudoephed/Dm [Fvudqoig-Qfk-Ah 2-30-10 mg/5Ml] 10 ml PO Q6H PRN 03/14/24 Capsaicin [Arthritis Pain Relief] 42.5 gm TP Q8H PRN 03/14/24 Carboxymethylcellulos/Glycerin [Refresh Relieva 0.5-0.9% Drop] 1 drop EACH EYE PRN PRN 03/14/24 Clopidogrel Bisulfate [Plavix*] 75 mg PO DAILY 03/14/24 Cyanocobalamin [Vitamin B-12*] 1 tab PO DAILY 03/14/24 Cyanocobalamin [Vitamin B-12*] 1 tab PO DAILY 03/14/24 Divalproex Sodium 250 mg PO DAILY 03/14/24 Finasteride [Proscar] 5 mg PO DAILY 03/14/24 Folate 1,000 mcg PO BID 03/14/24 Gabapentin [Neurontin] 100 mg PO DAILY PRN 03/14/24 Losartan Potassium [Cozaar] 50 mg PO DAILY 03/14/24 Memantine HCl [Namenda*] 10 mg PO BID 03/14/24 Metformin ER [Glucophage ER*] 1 tab PO BID 03/14/24 Multivitamin [Daily Marie] 1 tab PO DAILY 03/14/24 New Medications: Aspirin Chewable [Aspirin Chewable*] 2 tab PO BEDTIME #60 tab.chew Atorvastatin Calcium [Lipitor] 40 mg PO BEDTIME #30 tab Physician Discharge Instructions: -DC IV and DC home -Follow-up with PCP in 1 to 2 weeks -Follow-up with Neurology, Dr. Delgado, in 1 to 2 weeks -Please call Dr. Gómez at [phone] if any questions regarding hospital stay -Please call nursing station at [phone] if any nursing or medication questions -Return to the emergency room if symptoms worsen Followup: Henrik Delgado MD [ACTIVE - CAN ADMIT] - 1-2 Weeks Mauircio Pollard MD [Primary Care Provider] - 1-2 Weeks
== END 2024-03-10 18:43 | disposition home or self-care (01) | DRG 66 ==
LOC: ER 17:36 → ERHOLD 19:47 → 4TH 21:41
PROVIDERS: ADMIT Family Medicine; ATTEND Hospitalist
DX: I63.9 Cerebral infarction, unspecified (principal); E11.9 Type 2 diabetes mellitus without complications; M10.9 Gout, unspecified; E78.00 Pure hypercholesterolemia, unspecified; N40.0 Benign prostatic hyperplasia without lower urinary tract symptoms; G30.9 Alzheimer's disease, unspecified; F02.80 Dementia in other diseases classified elsewhere, unspecified severity, without behavioral disturbance, psychotic disturbance, mood disturbance, and anxiety; R41.0 Disorientation, unspecified; R29.703 NIHSS score 3; Z11.52 Encounter for screening for COVID-19; Z79.82 Long term (current) use of aspirin; Z79.84 Long term (current) use of oral hypoglycemic drugs; Z79.899 Other long term (current) drug therapy; Z85.828 Personal history of other malignant neoplasm of skin
CPT/HCPCS: 36415; 51702; 70450; 70551; 71045; 80053; 80061; 80179; 81001; 82947; 83605; 84484; 85025; 85610; 85730; 87040; 87804; 87811; 92526; 92610; 93005; 93306; 93880; 94760; 97116; 97161; 97530; 99285; J1650; J7030

== ENCOUNTER 2024-03-13 18:50 | Inpatient (IN) | payer OTHER ==
[~2024-03-13 18:50] MED LIST: LORazepam 2 MG/ML VIAL ONE; WATER FOR INJ,STERILE 10 ML ONE; ZIPRASIDONE MESYLA 20 MG/VIAL IM ONE
--- NOTE | 2024-03-13 19:51 | RAD REPORT ---
EXAM DESCRIPTION: RADChest Single View03/13/2024 7:34 pm CLINICAL HISTORY: COUGH COMPARISON: Chest Single View dated 03/08/2024; Chest Single View dated 01/16/2024; Chest Single View d ated 11/09/2022; Chest Pa And Lat (2 Views) dated 10/23/2021 TECHNIQUE: Portable AP view of the chest. FINDINGS: The lungs are clear. No pneumothorax or effusion. The cardiomediastinal contours are unre markable. IMPRESSION: No acute cardiopulmonary process.
[2024-03-13 20:08] LABS: Absolute Eosinophils 0.3 K/uL (0-0.5); Absolute Monocytes 0.7 K/uL (0.1-1.3); Absolute Neutrophil 4.1 K/uL (1.8-8.0); Basophils % 0.7 % (0-1.3); Eosinophils % 3.9 % (0-4.4); Hematocrit 40.7 % (39.6-49.0); Hemoglobin 13.6 g/dL (13.6-17.9); Lymphocytes % 27.5 % (15.3-44.8); MCH 32.6 pg (27.0-35.0); MCHC 33.5 g/dL (32.0-36.0); MCV 97.3 fL (80-100); MPV 8.4 fL (7.6-11.3); Neutrophils % 57.9 % (41.7-73.7); Platelets 239 thou/uL (152-406); RBC Red Blood Cell Count 4.19 M/uL (4.33-5.43); Red Cell Distribution Width 14.9 % (12.1-15.2)
[2024-03-13 20:08] LABS: Specific Gravity 1.022 (1.005-1.030); Urine Bilirubin NEGATIVE (Negative); Urine Blood Negative (Negative); Urine Clarity Clear (Clear); Urine Color Yellow (Yellow); Urine Glucose NEGATIVE (Negative); Urine Ketones NEGATIVE (Negative); Urine Microscopic Reflex YN NO UMIC; Urine Nitrite NEGATIVE (Negative); Urine Protein NEGATIVE (Negative); Urine Urobilinogen Normal (Normal); Urine pH 5.5 (5.0-7.0)
--- NOTE | 2024-03-13 20:14 | RAD REPORT ---
EXAM DESCRIPTION: CT - Head Brain Wo Cont - 03/13/2024 7:31 pm CLINICAL HISTORY: DECLINING STATE COMPARISON: Head Brain Wo Cont dated 03/08/2024; Head Brain Wo Cont dated 01/16/2024; Brain Wo Cont dania ed 03/09/2024 TECHNIQUE: Noncontrast head CT images were obtained without IV contrast. Multiplanar reformats were generated and reviewed. All CT scans are performed using dose optimization technique as appropriate and may include automated exposure control or mA/KV adjustment according to patient size. FINDINGS: No intracranial hemorrhage, mass, or edema. Midline structures are unremarkable. Stable ventricular caliber with moderate diffuse parenchymal volume loss. Patchy periventricular and deep white matter hypoattenuation pattern, stable and nonspecific, most godfrey ggestive of chronic small vessel ischemic changes. Stable region of hypoattenuation involving the right occipital lobe and right mesial temporal lobe. G ray-white matter differentiation elsewhere is preserved, without evidence of acute infarct. No abnorm al extra-axial fluid collections. Mastoid air cells and visualized portions of the paranasal sinuses are clear. No acute bony findings. IMPRESSION: Stable right [employer] territory subacute infarct. No other acute intracranial process. Other stable chronic findings as above. .
[2024-03-13 20:21] LABS: PT Prothrombin Time 11.2 SECONDS (9.5-12.5); PTT, Activated Partial Thromb 31.2 SECONDS (24.3-36.9); Protime INR 1.02
[2024-03-13 20:27] LABS: Anion Gap 5.5 mEq/L (5.0-15.0); Potassium 3.5 mEq/L (3.5-5.1); Troponin High Sensitivity 11.6 pg/mL (<58.9)
--- NOTE | 2024-03-13 22:34 | ER ---
Nurse's Notes [facility] Name: Justo Quinn Age: 89 yrs Sex: Male : 1935 Arrival Date: 03/13/2024 Time: 18:50 Bed 19 Private MD: Diagnosis: Frequent falls Presentation: 03/13 18:50 Chief complaint: EMS states: Dx with CVA last week and confusion has not improved. aa5 18:50 Onset of symptoms was 2023. aa5 18:50 Acuity: MINERVA 2 aa5 18:50 Method Of Arrival: EMS: [facility] aa5 18:50 Coronavirus screen: At this time, the client does not indicate any symptoms associated aa5 with coronavirus-19. 18:50 Ebola Screen: Patient denies travel to an Ebola-affected area in the 21 days before aa5 illness onset. Initial Sepsis Screen: Does the patient meet any 2 criteria? No. Patient's initial sepsis screen is negative. Does the patient have a suspected source of infection? No. Patient's initial sepsis screen is negative. Risk Assessment: Do you want to hurt yourself or someone else? Unable to obtain. Historical: - Allergies: 18:50 No Known Allergies; aa5 - PMHx: 18:50 Alzheimer's disease; Anxiety; BPH; Dementia; diabetes mellitus; Gout; aa5 Hypercholesterolemia; CVA; - Immunization history:: Adult Immunizations unknown. - Infectious Disease History:: unknown. - Social history:: Smoking status: unknown. Screenin:10 [facility] ED Fall Risk Assessment (Adult) History of falling in the last 3 months, me1 including since admission No falls in past 3 months (0 pts) Confusion or Disorientation Yes (5 pts) Intoxicated or Sedated No (0 pts) Impaired Gait Yes (1 pt) Mobility Assist Device Used Yes (1 pt) Altered Elimination No (0 pt) Score/Fall Risk Level 3 or more points = High Risk Maintained a safe environment, Hourly rounding (assess needs \T\ fall precautionary measures) done, Used ambulatory aids as needed (educated on \T\ assisted with). Abuse screen: Denies threats or abuse. Nutritional screening: No deficits noted. Tuberculosis screening: No symptoms or risk factors identified. Assessment: 19:10 General: Appears comfortable, well groomed, well developed, well nourished, Behavior is me1 calm, cooperative, appropriate for age, Reports CVA one week ago and confusion isnt getting any better. Pain: Denies pain. Neuro: Level of Consciousness is awake, alert, obeys commands, confused, Oriented to person, situation. Cardiovascular: Patient's skin is warm and dry. Respiratory: Airway is patent Respiratory effort is even, unlabored, Respiratory pattern is regular, symmetrical. GI: No signs and/or symptoms were reported involving the gastrointestinal system. : No signs and/or symptoms were reported regarding the genitourinary system. EENT: No signs and/or symptoms were reported regarding the EENT system. Derm: Skin is intact, is healthy with good turgor, Skin is pink, warm \T\ dry. Musculoskeletal: No signs and/or symptoms reported regarding the musculoskeletal system. 03/14 00:40 General: Appears in no apparent distress. comfortable, Behavior is calm, cooperative, jw7 restless. 00:40 Pain: Denies pain. Neuro: Level of Consciousness is awake, alert, obeys commands, jw7 confused, Oriented to person. Cardiovascular: Capillary refill < 3 seconds Patient's skin is warm and dry. Respiratory: Airway is patent Trachea midline Respiratory effort is even, unlabored, Respiratory pattern is regular, symmetrical. GI: Abdomen is round non-distended, Bowel sounds present X 4 quads. Abd is soft and non tender X 4 quads. : No deficits noted. No signs and/or symptoms were reported regarding the genitourinary system. EENT: No deficits noted. No signs and/or symptoms were reported regarding the EENT system. Derm: Skin is healthy with good turgor, is fragile, has skin tears on Left lower extremity Skin is dry, Skin is normal, Skin temperature is warm. Musculoskeletal: Circulation, motion, and sensation intact. Range of motion: intact in all extremities. 01:00 General: Pt Admitted, please see [facility] for charting and vital signs. jw7 Vital Signs: 03/13 18:50 BP 147 / 92; Pulse 72; Resp 19 S; Temp 97.6(TE); Pulse Ox 99% on R/A; aa5 19:00 BP 128 / 95; Pulse 76; Resp 16; Pulse Ox 98% on R/A; me1 20:00 BP 142 / 87; Pulse 71; Resp 17; Pulse Ox 94% on R/A; me1 21:00 BP 161 / 80; Pulse 79; Resp 16; Pulse Ox 93% on R/A; me1 23:00 BP 130 / 74; Pulse 65; Resp 16; Pulse Ox 96% on R/A; me1 06/04 00:40 BP 130 / 74; Pulse 65; Resp 16 S; Pulse Ox 97% on R/A; jw7 02:39 Weight 95.25 kg; Height 6 ft. 0 in. ; rv1 02:39 Body Mass Index 28.48 (95.25 kg, 182.88 cm) rv1 ED Course: 03/13 18:50 Arm band placed on. aa5 19:01 Patient arrived in ED. aa5 19:04 Roxana Betts MD is Attending Physician. gb1 19:08 Triage completed. aa5 19:09 Jocelyn Dover, RN is Primary Nurse. me1 19:10 Patient has correct armband on for positive identification. Placed in gown. Bed in low me1 position. Call light in reach. Side rails up X2. Provided Education on: POC. Daughter verbalized understanding. . Client placed on continuous cardiac and pulse oximetry monitoring. NIBP monitoring applied. environmental monitoring technician on. Pulse ox on. NIBP on. 19:10 No provider procedures requiring assistance completed. me1 19:33 CT Head Brain wo Cont In Process Unspecified. EDMS 19:36 Chest Single View XRAY In Process Unspecified. EDMS 19:50 Initial lab(s) drawn, by me, sent to lab. Urine collected: clean catch specimen, me1 cloudy. Inserted saline lock: 22 gauge in right antecubital area, using aseptic technique. 19:50 BNP Sent. me1 19:51 Basic Metabolic Panel Sent. me1 19:51 CBC with Diff Sent. me1 19:51 High Sensitivity Troponin Sent. me1 19:51 Protime (+inr) Sent. me1 19:51 Ptt, Activated Sent. me1 19:51 Urinalysis w/ reflexes Sent. me1 20:12 Attending Physician role handed off by Roxana Betts MD rt 20:12 Pillo Irving MD is Attending Physician. rt 20:44 EKG done, by ED staff. vk 22:31 Patrizia Bhatti MD is Hospitalizing Provider. rt [id number] 03:56 Patient admitted, IV remains in place. jw7 Administered Medications: No medications were administered Medication: 03/13 19:10 VIS not applicable for this client. me1 Outcome: 22:31 Decision to Hospitalize by Provider. rt 03/14 03:54 Admitted to ICU accompanied by nurse, via stretcher, room 5, Report called to juanjose Banks RN Condition: stable Instructed on the need for admit, Demonstrated understanding of instructions, 03:58 Patient left the ED. juanjose Signatures: Dispatcher [employer] EDDina Churchill, RN RN aa5 Fawn Blevins RN RN jw7 Pillo Irving MD MD rt Zayra Hatfield 1 Jocelyn Dover RN RN me1 Roxana Betts MD MD gb1 Peyton Antonio Corrections: (The following items were deleted from the chart) 03/13 19:08 19:01 Arm band placed on aa5 aa5
--- NOTE | 2024-03-13 22:34 | EDPHYS ---
Physician Documentation [facility] Name: Justo Quinn Age: 89 yrs Sex: Male : 1935 Arrival Date: 03/13/2024 Time: 18:50 Bed 19 Private MD: ED Physician Pillo Irving HPI: 03/14 00:38 This 89 yrs old Male presents to ER via EMS with complaints of Altered Mental Status. rt 03/13 19:55 Mr. Quinn is an 89-year-old male brought him with altered mental status by his gb1 daughter. He has history of Alzheimer disease, recent stroke, dementia, diabetes, gout and hyperlipidemia. The patient was sent to a assisted living facility with his but was noticed to be more confused and more agitated and more altered than he was when he previously presented the emergency department with a stroke on his last hospital admission. Patient's daughter denies any falls or any recent trauma.. Historical: - Allergies: 18:50 No Known Allergies; aa5 - PMHx: 18:50 Alzheimer's disease; Anxiety; BPH; Dementia; diabetes mellitus; Gout; aa5 Hypercholesterolemia; CVA; - Immunization history:: Adult Immunizations unknown. - Infectious Disease History:: unknown. - Social history:: Smoking status: unknown. ROS: 03/14 00:38 Unable to obtain ROS due to baseline dementia, rt Exam: 03/13 19:56 Constitutional: This is a well developed, well nourished patient who is awake, alert, gb1 and in no acute distress. Head/Face: Normocephalic, atraumatic. Eyes: Pupils equal round and reactive to light, extra-ocular motions intact. Lids and lashes normal. Conjunctiva and sclera are non-icteric and not injected. Cornea within normal limits. Periorbital areas with no swelling, redness, or edema. ENT: Nares patent. No nasal discharge, no septal abnormalities noted. Tympanic membranes are normal and external auditory canals are clear. Oropharynx with no redness, swelling, or masses, exudates, or evidence of obstruction, uvula midline. Mucous membranes moist. Neck: Trachea midline, no thyromegaly or masses palpated, and no cervical lymphadenopathy. Supple, full range of motion without nuchal rigidity, or vertebral point tenderness. No Meningismus. Chest/axilla: Normal chest wall appearance and motion. Nontender with no deformity. No lesions are appreciated. Cardiovascular: Regular rate and rhythm with a normal S1 and S2. No gallops, murmurs, or rubs. Normal PMI, no JVD. No pulse deficits. Respiratory: Lungs have equal breath sounds bilaterally, clear to auscultation and percussion. No rales, rhonchi or wheezes noted. No increased work of breathing, no retractions or nasal flaring. Abdomen/GI: Soft, non-tender, with normal bowel sounds. No distension or tympany. No guarding or rebound. No evidence of tenderness throughout. Back: No spinal tenderness. No costovertebral tenderness. Full range of motion. Skin: Warm, dry with normal turgor. Normal color with no rashes, no lesions, and no evidence of cellulitis. MS/ Extremity: Pulses equal, no cyanosis. Neurovascular intact. Full, normal range of motion. Neuro: Awake and alert, GCS 15, oriented to person, place, time, and situation. Cranial nerves II-XII grossly intact. Motor strength 5/5 in all extremities. Sensory grossly intact. Cerebellar exam normal. Normal gait. 22:32 ECG was reviewed by the Attending Physician. rt Vital Signs: 18:50 BP 147 / 92; Pulse 72; Resp 19 S; Temp 97.6(TE); Pulse Ox 99% on R/A; aa5 19:00 BP 128 / 95; Pulse 76; Resp 16; Pulse Ox 98% on R/A; me1 20:00 BP 142 / 87; Pulse 71; Resp 17; Pulse Ox 94% on R/A; me1 21:00 BP 161 / 80; Pulse 79; Resp 16; Pulse Ox 93% on R/A; me1 23:00 BP 130 / 74; Pulse 65; Resp 16; Pulse Ox 96% on R/A; me1 06/04 00:40 BP 130 / 74; Pulse 65; Resp 16 S; Pulse Ox 97% on R/A; jw7 02:39 Weight 95.25 kg; Height 6 ft. 0 in. ; rv1 02:39 Body Mass Index 28.48 (95.25 kg, 182.88 cm) rv1 MDM: 03/13 19:07 Patient medically screened. gb1 19:56 Differential Diagnosis: CVA, electrolyte abnormality, hypoglycemia, pneumonia, sepsis, gb1 TIA, UTI, volume depletion. Data reviewed: vital signs, nurses notes, EMS record. 19:57 ED course: 89-year-old male brought by his daughter for altered mental status. He was gb1 here for a stroke that he had and was then discharged to a residential facility with his which is also assisted living. Patient was brought today by his daughter for continued altered mental status and worsening with his ADLs. On exam he is afebrile nontoxic-appearing CT brain on my evaluation does not show any large territory ischemic or hemorrhagic stroke. He is otherwise has a stable blood pressure and concern to me today as TIA versus TIA VA CVA, UTI. I am turning the patient over Dr. Irving pending CT results as well as labs. I discussed the case with the patient's family and they are also aware of the patient's plan for disposition the emergency department. Of note, the family would like the patient admitted for placement in a residential facility.. 03/14 00:38 Consideration of Admission/Observation Patient was admitted/placed on observation. rt Management of patient was discussed with the following: Hospitalist: Agrees to admit. Independent interpretation of the following test(s) in the Emergency Department CT Scan: My interpretation is No intracranial hemorrhage seen on interpretation of CT scan images. Care significantly affected by the following chronic conditions: Dementia. Counseling: I had a detailed discussion with the patient and/or guardian regarding the historical points, exam findings, and any diagnostic results supporting the discharge/admit diagnosis, lab results, radiology results, the need for further work-up and treatment in the hospital. 03/13 19:07 Order name: Basic Metabolic Panel; Complete Time: 20:28 gb1 03/13 19:07 Order name: CBC with Diff; Complete Time: 20:28 gb1 03/13 19:07 Order name: High Sensitivity Troponin; Complete Time: 20:28 gb1 03/13 19:07 Order name: Protime (+inr); Complete Time: 20:28 gb1 03/13 19:07 Order name: Ptt, Activated; Complete Time: 20:28 gb1 03/13 19:07 Order name: BNP; Complete Time: 20:28 gb1 03/13 19:07 Order name: Urinalysis w/ reflexes; Complete Time: 20:17 gb1 06/03 23:08 Order name: CBC with Automated Diff EDMS 03/13 23:08 Order name: CBC with Automated Diff EDMS 03/13 23:08 Order name: Comprehensive Metabolic Panel EDMS 03/13 23:08 Order name: Comprehensive Metabolic Panel EDMS 03/13 23:08 Order name: Troponin High Sensitivity EDMS 03/13 23:08 Order name: Troponin High Sensitivity EDMS 03/13 19:07 Order name: Chest Single View XRAY; Complete Time: 20:00 gb1 03/13 19:07 Order name: CT Head Brain wo Cont; Complete Time: 20:17 gb1 03/13 23:04 Order name: Social Service Consult EDMS 03/13 23:08 Order name: CONS Physician Consult EDMS 03/13 19:07 Order name: Accucheck; Complete Time: 20:48 gb1 03/13 19:07 Order name: Cardiac monitoring; Complete Time: 20:48 gb1 03/13 19:07 Order name: EKG - Nurse/Tech; Complete Time: 20:44 gb1 03/13 19:07 Order name: IV Saline Lock; Complete Time: 19:50 gb1 03/13 19:07 Order name: Labs collected and sent; Complete Time: 19:51 gb1 03/13 19:07 Order name: O2 Per Protocol; Complete Time: 19:51 gb1 03/13 19:07 Order name: O2 Sat Monitoring; Complete Time: 19:51 gb1 EC/03 22:32 Rate is 74 beats/min. Rhythm is regular, Normal Sinus Rhythm with PACs, Right bundle rt branch block. Left axis deviation noted. TN interval is prolonged at 224 msec. QT interval is normal. No Q waves. Administered Medications: No medications were administered Disposition Summary: 03/13/24 22:31 Hospitalization Ordered Notes: Hospitalization Status: Observation rt Provider: Patrizia Bhatti rt Condition: Stable rt Problem: new rt Symptoms: are unchanged rt Bed/Room Type: Standard rt Location: Intensive Care Unit(03/14/24 02:51) rv1 Room Assignment: 5-(03/14/24 02:51) rv1 Diagnosis - Frequent falls rt Forms: - Medication Reconciliation Form rt - SBAR form rt - Leadership Thank You Letter rt Signatures: Dispatcher [employer] EDDina Churchill RN RN aa5 Pillo Irving MD MD rt Zayra Hatfield rv1 Roxana Betts MD MD gb1 Corrections: (The following items were deleted from the chart) 19:07 Chest Single View+RAD.RAD.BRZ ordered. EDMS EDMS 19:07 Head Brain Wo Cont+CT.RAD.BRZ ordered. EDMS EDMS 03/14 02:51 03/13 22:31 Telemetry/MedSurg (observation) rt rv1 03/14 02:51 03/13 22:31 rt rv1
--- NOTE | 2024-03-13 23:01 | P.HP ---
Certification for Inpatient With expected LOS: >2 Midnights Patient will require the following post-hospital care: Mcfp Practitioner: I am a practitioner with admitting privileges, knowledge of patient current condition, hospital course, and medical plan of care. Services: Services provided to patient in accordance with Admission requirements found in Title 42 Section 412.3 of the Code of Federal Regulations Patient History Date of Service: 03/13/24 Reason for admission: Increasing confusion History of Present Illness: 89-year-old male with past past medical history of hypertension, DM, GERD, gout, HLD, Alzheimer's dementia, recent right subacute infarct1 month ago treated and discharged to assisted living facility, patient was brought in by family today because he has been having increasing confusion, recurrent falls, worsening intermittent agitations at the assisted living facility. Family worried that patient unable to be fit to continue in assisted living facility. They are requesting placement for the patient. No reported fever, headache or chills. 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 Patient is being admitted for worsening dementia with failure to thrive Allergies No Known Allergies Allergy (Unverified 04/22/13 17:06) Home Medications: Metformin HCl [Glucophage*] 1 tab PO BID 12/04/16 Metoprolol Tartrate 1 tab PO BID 12/04/16 Ascorbic Acid [Vitamin C*] 1,000 mg PO DAILY 12/05/16 Cholecalciferol (Vitamin D3) [Vitamin D3] 1 tab PO DAILY 12/05/16 Allopurinol 200 mg PO DAILY 03/09/24 Divalproex ER [Depakote *ER] 1 tab PO DAILY 03/09/24 Docusate [Colace Cap] 100 mg PO DAILY PRN 03/09/24 Donepezil HCl 10 mg PO BEDTIME 03/09/24 Finasteride [Proscar] 5 mg PO DAILY 03/09/24 Gabapentin [Neurontin] 200 mg PO DAILY PRN 03/09/24 Loratadine [Claritin] 10 mg PO DAILY 03/09/24 Losartan Potassium [Cozaar] 50 mg PO DAILY 03/09/24 Tamsulosin HCl [Flomax] 0.4 mg PO BEDTIME 03/09/24 Aspirin Chewable [Aspirin Chewable*] 2 tab PO BEDTIME #60 tab.chew 03/10/24 Atorvastatin Calcium [Lipitor] 40 mg PO BEDTIME #30 tab 03/10/24 Clopidogrel Bisulfate [Plavix] 75 mg PO DAILY #30 tab 03/10/24 - Past Medical/Surgical History Diabetic: Yes -: HTN -: HIGH CHOLESTEROL -: NIDDM -: SKIN CA -: URI -: BACK SX -: NECK SX - Social History Smoking Status: Never smoker Smoking therapy provided: No Patient receptive to therapy: No Alcohol use: No Caffeine use: Yes Place of Residence: Home Review of Systems 10-point ROS is otherwise unremarkable Physical Examination - Physical Exam General: Oriented x1, Cooperative, Demented HEENT: Atraumatic, PERRLA Neck: Supple, 2+ carotid pulse no bruit, JVD not distended Respiratory: Clear to auscultation bilaterally, Normal air movement Cardiovascular: Normal pulses, Regular rate/rhythm, Normal S1 S2 Gastrointestinal: Normal bowel sounds, Soft and benign, Non-distended, No ascites, No tenderness Musculoskeletal: No clubbing, No swelling Neurological: Normal speech, Normal tone, Cranial nerves 3-12 intact Lymphatics: No axilla or inguinal lymphadenopathy External genitalia: No edema, No lesions - Studies Laboratory Data (last 24 hrs) 03/13/24 03/13/24 03/13/24 19:48 19:48 19:48 WBC 7.10 Hgb 13.6 Hct 40.7 Plt Count 239 PT 11.2 INR 1.02 APTT 31.2 Sodium 139 Potassium 3.5 BUN 26 H Creatinine 1.33 H Glucose 108 H Assessment and Plan - Problems (Diagnosis) (1) Altered mental status Onset Date: 12/07/16 Current Visit: No Status: Acute (2) Hypertension Current Visit: No Status: Acute (3) Type 2 diabetes mellitus without complications Current Visit: No Status: Acute - Plan Impression Dementia Failure to thrive CVAstable Hypertension Diabetes mellitus HLD Plan Will admit patient Gentle IV fluid Will consult neurology Case management for half-way placement Strict glycemic control Resume home regimen Consider low-dose Seroquel nightly for agitation Lovenox for DVT prophylaxis Full code for - Advance Directives Does patient have a Living Will: No Does patient have a Durable POA for Healthcare: No Physician Review: Patient Assessed, Agree with Above Assessment and Plan Time Spent Managing Pts Care (In Minutes): 65
[2024-03-13] MEDS ORDERED: ONDANSETRON 4 MG/2 ML VIAL IV PRN (23:02)
[2024-03-13] MEDS ORDERED: ACETAMINOPHEN 500 MG TAB PO PRN (23:02)
[2024-03-13] MEDS ORDERED: ALBUTEROL 2.5 MG/3 ML NEB SOL NEB PRN (23:02)
[2024-03-14] MEDS: QUETIAPINE 25 MG TAB PO SCH (02:36)
[2024-03-14] MEDS: NA CHLORIDE 0.9% 1,000 ML IV SCH (02:37)
[2024-03-14 04:26] VITALS: BMI 26.6
[2024-03-14] MEDS: ZIPRASIDONE MESYLA 20 MG/VIAL IM ONE ×2 (05:33→05:35)
[2024-03-14] MEDS: WATER FOR INJ,STERILE 10 ML ONE (05:33)
[2024-03-14] MEDS: WATER FOR INJ,STERILE 10 ML IM PRN (05:35)
[2024-03-14 06:03] LABS: Absolute Basophils 0.1 K/uL (0-0.5); Absolute Eosinophils 0.3 K/uL (0-0.5); Absolute Lymphocytes (CBC) 1.7 K/uL (0.7-4.9); Absolute Monocytes 0.7 K/uL (0.1-1.3); Basophils % 0.9 % (0-1.3); Eosinophils % 4.2 % (0-4.4); Hematocrit 39.7 % (39.6-49.0); Hemoglobin 13.7 g/dL (13.6-17.9); Lymphocytes % 25.1 % (15.3-44.8); MCH 33.6 pg (27.0-35.0); MCHC 34.5 g/dL (32.0-36.0); MCV 97.5 fL (80-100); Monocytes % 10.1 % (3.3-12.3); Neutrophils % 59.7 % (41.7-73.7); Nucleated Red Blood Cells % 0.1 % (0-0); Platelets 238 thou/uL (152-406); RBC Red Blood Cell Count 4.07 M/uL (4.33-5.43); Red Cell Distribution Width 14.7 % (12.1-15.2)
[2024-03-14 06:20] LABS: Albumin 3.2 g/dL (3.4-5.0); Anion Gap 9.4 mEq/L (5.0-15.0); Bilirubin Total 1.3 mg/dL (0.2-1.0); Globulin 3.3 g/dL (2.3-3.5); Potassium 3.4 mEq/L (3.5-5.1); Protein, Total 6.5 g/dL (6.4-8.2); Troponin High Sensitivity 14.7 pg/mL (<58.9)
--- NOTE | 2024-03-14 07:08 | P.PN ---
Date of Service: 03/14/24 Subjective: Family reports increased confusion, agitation at home last 24-36 hrs difficult to care for at home. falling more patient is at assisted living, so not able to get much added help currently reports weakness, frequent falls, incontinence since prior stroke 1 week ago increased sundowning /confusion / agitation oriented x1-2 at baseline. Family reports patient usually more interactive/alert intermittent agitation overnight - given geodon ROS: 10 point ROS unable to be fully obtained secondary to mentation and ability to understand Physical Exam: GEN: orientedx1 (self), confused HEENT: Normal conjunctiva, sclera anicteric CV: Regular rate and rhythm, no edema Pulm: Nonlabored respirations on room air, clear bilaterally ABD: Soft, nontender, nondistended Neuro: mumbling/slurred speech, hard of hearing, moves extremities, attempting to get out of bed vitals reviewed Problem List: Recent acute CVA (9cm Right FOLDER SEAMER AUTOMATIC territory - 03/09) with encephalopathy Failure to thrive Alzheimer's Dementia NIDDM2 Hypertension Hyperlipidemia BPH hx Gout Recent acute CVA (9cm Right FOLDER SEAMER AUTOMATIC territory - 03/09) with encephalopathy Failure to thrive Alzheimer's Dementia Reports worsening confusion, recurrent falls, intermittent agitation, failure to thrive at assisted living facility - family requesting placement Recent CVA ~1 week ago - 9cm nonhemorrhagic acute CVA right FOLDER SEAMER AUTOMATIC involving medial right occipital lobe. (03/09) Discharge with aspirin, plavix, statin 03/10/24 CT head (03/13): stable right FOLDER SEAMER AUTOMATIC territory subacute infarct. 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 Neurology consulted contine aspirin, statin, plavix given geodon 6/4 am continue seroquel at bedtime; added 03/13 for agitation restart home depakote NIDDM2 accu-checks, SSI resume home metformin Hypertension resume home losartan PRN hydralazine Hyperlipidemia resume statin BPH resume flomax, finasteride hx Gout resume allopurinol VTE: Lovenox Code: DNR Dispo: SNF ss/cm consulted for placement confirmed code status with MPOA on 03/14 - DNR
[2024-03-14] MEDS: MORPHINE 4 MG/ML SYR IV PRN ×2 (10:26→15:13)
[2024-03-14] MEDS: ENOXAPARIN 40 MG/0.4 ML SQ SCH (10:26)
[2024-03-14] MEDS: LORazepam 2 MG/ML VIAL IV ONE (11:46)
[2024-03-14] MEDS ORDERED: WATER FOR INJ,STERILE 10 ML IM PRN (12:04)
[2024-03-14] MEDS ORDERED: LORazepam 2 MG/ML VIAL IV PRN (12:05)
--- NOTE | 2024-03-14 13:19 | EKG ---
Test Date: 2024-03-13 Test Time: 20:24:29 [employer] Worker: KARINA MEASUREMENT RESULTS: Intervals: Rate: 74 MS: 226 QRSD: 124 QT: 426 QTc: 472 Celeste: P: 60 MS: 226 QRS: -72 T: -34 INTERPRETIVE STATEMENTS: Sinus rhythm with 1st degree AV block with premature atrial complexes Left axis deviation Right bundle branch block Voltage criteria for left ventricular hypertrophy Inferior infarct, age undetermined Abnormal ECG Compared to ECG 03/08/2024 18:38:08 Atrial premature complex(es) now present Left-axis deviation now present Left ventricular hypertrophy now present Myocardial infarct finding now present Left anterior fascicular block no longer present Bifascicular block no longer present Electronically Signed On 03-14-24 13:17:04 CDT by Christian Parker
[2024-03-14] MEDS: LOSARTAN POTASSIUM 50 MG TABLET PO SCH (13:24)
[2024-03-14] MEDS: ASPIRIN 81 MG CHEWABLE TABLET PO SCH (13:24)
[2024-03-14] MEDS: allopurinoL 100 MG TAB PO SCH (13:25)
[2024-03-14] MEDS: FINASTERIDE 5 MG TAB PO SCH (13:25)
[2024-03-14] MEDS: CLOPIDOGREL 75 MG TABLET PO SCH (13:25)
[2024-03-14] MEDS ORDERED: GABAPENTIN 100 MG CAP PO PRN (14:50)
[2024-03-14] MEDS: METFORMIN ER 500 MG TAB PO SCH (17:00)
[2024-03-14] MEDS: TAMSULOSIN 0.4 MG SR CAP PO SCH (20:23)
[2024-03-14] MEDS: ATORVASTATIN 40 MG TAB PO SCH (20:24)
[2024-03-14] MEDS: DONEPEZIL HCL 5 MG TAB PO SCH (20:24)
[2024-03-15] MEDS: ZIPRASIDONE MESYLA 20 MG/VIAL IM PRN (01:35)
[2024-03-15 06:13] LABS: Hematocrit 41.7 % (39.6-49.0); MCH 32.9 pg (27.0-35.0); MCHC 33.6 g/dL (32.0-36.0); MCV 97.9 fL (80-100); MPV 7.9 fL (7.6-11.3); Platelets 238 thou/uL (152-406); RBC Red Blood Cell Count 4.26 M/uL (4.33-5.43); Red Cell Distribution Width 14.7 % (12.1-15.2)
[2024-03-15 06:41] LABS: Albumin 3.3 g/dL (3.4-5.0); Albumin/Globulin Ratio 0.9 (1.1-1.8); Anion Gap 8.7 mEq/L (5.0-15.0); Bilirubin Total 1.7 mg/dL (0.2-1.0); Globulin 3.5 g/dL (2.3-3.5); Magnesium 1.6 mg/dL (1.6-2.4); Potassium 4.7 mEq/L (3.5-5.1); Protein, Total 6.8 g/dL (6.4-8.2)
[2024-03-15] MEDS: DIVALPROEX ER 250 MG TAB PO SCH (09:00)
[2024-03-15] MEDS ORDERED: FINASTERIDE 5 MG TAB PO SCH (09:00)
--- NOTE | 2024-03-15 09:12 | P.PN ---
Date of Service: 03/15/24 Subjective: no significant change in condition agitated overnight, received abiel concern regarding ability to swallow family at bedside updated family currently looking into hospice / comfort care ROS: 10 point ROS unable to be fully obtained secondary to mentation and ability to understand Physical Exam: GEN: orientedx1 (self), confused HEENT: Normal conjunctiva, sclera anicteric CV: Regular rate and rhythm, no edema Pulm: Nonlabored respirations on room air, clear bilaterally ABD: Soft, nontender, nondistended Neuro: mumbling/slurred speech, hard of hearing, moves extremities, attempting to get out of bed/sit up vitals reviewed Problem List: Recent acute CVA (9cm Right COMMERCIAL LINES ACCOUNT ASSISTANT territory - 03/09) with encephalopathy Failure to thrive Alzheimer's Dementia, advanced NIDDM2 Hypertension Hyperlipidemia BPH hx Gout Recent acute CVA (9cm Right COMMERCIAL LINES ACCOUNT ASSISTANT territory - 03/09) with encephalopathy Failure to thrive Alzheimer's Dementia Reports worsening confusion, recurrent falls, intermittent agitation, failure to thrive at assisted living facility - family requesting placement Recent CVA ~1 week ago - 9cm nonhemorrhagic acute CVA right COMMERCIAL LINES ACCOUNT ASSISTANT involving medial right occipital lobe. (03/09) Discharge with aspirin, plavix, statin 03/10/24 CT head (03/13): stable right COMMERCIAL LINES ACCOUNT ASSISTANT territory subacute infarct. 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 Neurology consulted contine aspirin, statin, plavix given geodon 03/14, 03/15 overnight continue seroquel at bedtime; added 03/13 for agitation restart home depakote NIDDM2 accu-checks, SSI resume home metformin Hypertension resume home losartan PRN hydralazine Hyperlipidemia resume statin BPH resume flomax, finasteride hx Gout resume allopurinol Code: DNR Dispo: ?Hospice at facility ss/cm consulted confirmed code status with MPOA on 03/14 - DNR
[2024-03-15] MEDS: HYDRALAZINE HCL 20 MG/ML VIAL IV PRN (09:13)
[2024-03-15] MEDS ORDERED: ALBUTEROL 2.5 MG/3 ML NEB SOL NEB PRN (10:48)
[2024-03-15] MEDS: MELATONIN 5 MG TABLET PO PRN (20:29)
[2024-03-15 22:39] VITALS: O2SAT 92
--- NOTE | 2024-03-16 12:14 | P.PN ---
Date of Service: 03/16/24 Subjective: remains confused. Oriented to self only. refusing oral meds at times. Holds in mouth and eventually spits them out MPOA looking into [facility] No new issues overnight ROS: 10 point ROS unable to be fully obtained secondary to mentation and ability to understand Physical Exam: GEN: orientedx1 (self), confused, slurrred/mumbled speech HEENT: Normal conjunctiva, sclera anicteric CV: Regular rate and rhythm, no edema Pulm: Nonlabored respirations on room air, clear bilaterally ABD: Soft, nontender, nondistended Neuro: mumbling/slurred speech, hard of hearing, moves extremities, attempting to get out of bed/sit up vitals reviewed Problem List: Recent acute CVA (9cm Right SUPERVISOR POLISHING territory - 03/09) with encephalopathy Failure to thrive Alzheimer's Dementia, advanced NIDDM2 Hypertension Hyperlipidemia BPH hx Gout Recent acute CVA (9cm Right SUPERVISOR POLISHING territory - 03/09) with encephalopathy Failure to thrive Alzheimer's Dementia Reports worsening confusion, recurrent falls, intermittent agitation, failure to thrive at assisted living facility - family requesting placement Recent CVA ~1 week ago - 9cm nonhemorrhagic acute CVA right SUPERVISOR POLISHING involving medial right occipital lobe. (03/09) Discharge with aspirin, plavix, statin 03/10/24 CT head (03/13): stable right SUPERVISOR POLISHING territory subacute infarct. 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 MPOA discussing goals of care, looking into hospice facilities - Would like to pursue [facility] with hospice discussed with MPOA and at bedside, would like to pursue comfort care, no IV fluids patient unable to swallow at this time discussed with social insurance adviser and family, will reach out to hospice for eval for inpatient hospice Neurology consulted given abiel 03/14, 03/15 overnight continue seroquel at bedtime; added 03/13 for agitation resumed home depakote if can take PO NIDDM2 accu-checks, SSI resume home metformin Hypertension resume home losartan PRN hydralazine Hyperlipidemia resume statin BPH resume flomax, finasteride hx Gout resume allopurinol Code: DNR Dispo: Hospice at [facility] vs inpatient; currently being setup ss/cm consulted confirmed code status with [facility] on 03/14 - DNR
[2024-03-16] MEDS: LORazepam 2 MG/ML VIAL IV PRN (20:13)
[2024-03-17 04:03] VITALS: TEMP 98.2
[2024-03-17] MEDS ORDERED: SCOPOLAMINE HYDROBROMIDE PATCH TD ONE (17:30)
--- NOTE | 2024-03-17 17:47 | P.DS ---
Admission Date: 03/15/24 Discharge Date: 03/17/24 Disposition: Reason for Admission: Increasing confusion / Failure to thrive Consultations: Neurology - Dr. Avila Brief History of Present Illness: 89yo, PMH: hypertension, DM, GERD, gout, HLD, Alzheimer's dementia, recent right subacute infarct1 month ago treated and discharged to assisted living facility, Patient was brought in by family today because he has been having increasing confusion, recurrent falls, worsening intermittent agitations at the assisted living facility. Family worried that patient unable to be fit to continue in assisted living facility. They are requesting placement for the patient. No reported fever, headache or chills. Arrival in the ED, repeat head CT shows no acute intracranial pathology, stable right [place] subacute infarct unchanged from previous imaging findings from 1 month ago, laboratory workup shows normal WBC, creatinine of 1.33 baseline of 1.0. 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 This was felt secondary to recent large CVA complicated by worsening Alzheimer's dementia. Chest xray / CT abdomen were without any acute findings, did note stable right [place] territory subacute infarct. Labwork on admission was unremarkable. After multiple discussions, family decided hospice would be most appropriate and in line with the patient's wishes given his clinical status / quality of life. Patient was managed with comfort measures and transferred to inpatient hospice. Physical exam: Vital Signs/Physical Exam: Temp Pulse Resp BP Pulse Ox 98.2 F 83 20 158/91 H 98 03/17/24 16:00 03/17/24 16:00 03/17/24 16:00 03/17/24 16:00 03/17/24 16:00 Laboratory Data at Discharge: WBC 7.80 thou/uL (4.3-10.9) 03/15/24 05:50 Hgb 14.0 g/dL (13.6-17.9) 03/15/24 05:50 Hct 41.7 % (39.6-49.0) 03/15/24 05:50 Plt Count 238 thou/uL (152-406) 03/15/24 05:50 PT 11.2 SECONDS (9.5-12.5) 03/13/24 19:48 INR 1.02 03/13/24 19:48 APTT 31.2 SECONDS (24.3-36.9) 03/13/24 19:48 Sodium 142 mEq/L (136-145) 03/15/24 05:50 Potassium 4.7 mEq/L (3.5-5.1) D 03/15/24 05:50 BUN 19 mg/dL (7-18) H 03/15/24 05:50 Creatinine 1.09 mg/dL (0.70-1.30) 03/15/24 05:50 Glucose 135 mg/dL (74-106) H 03/15/24 05:50 Magnesium 1.6 mg/dL (1.6-2.4) 03/15/24 05:50 Total Bilirubin 1.7 mg/dL (0.2-1.0) H 03/15/24 05:50 AST 17 U/L (15-37) 03/15/24 05:50 ALT 26 U/L (16-61) 03/15/24 05:50 Alkaline Phosphatase 89 U/L (45-117) 03/15/24 05:50 Home Medications: Metformin HCl [Glucophage*] 1 tab PO BID 12/04/16 Metoprolol Tartrate 1 tab PO BID 12/04/16 Cholecalciferol (Vitamin D3) [Vitamin D3] 1 tab PO DAILY 12/05/16 Allopurinol 200 mg PO DAILY 03/09/24 Divalproex ER [Depakote *ER] 1 tab PO DAILY 03/09/24 Docusate [Colace Cap] 200 mg PO DAILY PRN 03/09/24 Donepezil HCl 10 mg PO BEDTIME 03/09/24 Gabapentin [Neurontin] 200 mg PO DAILY PRN 03/09/24 Loratadine [Claritin] 10 mg PO DAILY 03/09/24 Losartan Potassium [Cozaar] 50 mg PO DAILY 03/09/24 Tamsulosin HCl [Flomax] 0.4 mg PO BEDTIME 03/09/24 Aspirin Chewable [Aspirin Chewable*] 2 tab PO BEDTIME #60 tab.chew 05/31/24 Atorvastatin Calcium [Lipitor] 40 mg PO BEDTIME #30 tab 03/10/24 Acetaminophen [Tylenol Extra Strength] 500 mg PO Q4H PRN 03/14/24 Albuterol Neb [Proventil 0.083% Neb Soln] 1 vial IH Q8H PRN 03/14/24 Brompheniramine/Pseudoephed/Dm [Bliklitu-Bat-Ds 2-30-10 mg/5Ml] 10 ml PO Q6H PRN 03/14/24 Capsaicin [Arthritis Pain Relief] 42.5 gm TP Q8H PRN 03/14/24 Carboxymethylcellulos/Glycerin [Refresh Relieva 0.5-0.9% Drop] 1 drop EACH EYE PRN PRN 03/14/24 Clopidogrel Bisulfate [Plavix*] 75 mg PO DAILY 03/14/24 Cyanocobalamin [Vitamin B-12*] 1 tab PO DAILY 03/14/24 Cyanocobalamin [Vitamin B-12*] 1 tab PO DAILY 03/14/24 Divalproex Sodium 250 mg PO DAILY 03/14/24 Finasteride [Proscar] 5 mg PO DAILY 03/14/24 Folate 1,000 mcg PO BID 03/14/24 Gabapentin [Neurontin] 100 mg PO DAILY PRN 03/14/24 Losartan Potassium [Cozaar] 50 mg PO DAILY 03/14/24 Memantine HCl [Namenda*] 10 mg PO BID 03/14/24 Metformin ER [Glucophage ER*] 1 tab PO BID 03/14/24 Multivitamin [Daily Marie] 1 tab PO DAILY 03/14/24 Physician Discharge Instructions: Physician discharge instructions: Patient presented with worsening confusion, recurrent falls, intermittent agitation, failure to thrive at assisted living facility after recent discharge for acute CVA. This was felt secondary to recent large CVA complicated by worsening Alzheimer's dementia. Chest xray / CT abdomen were without any acute findings, did note stable right [place] territory subacute infarct. Labwork on admission was unremarkable. After multiple discussions, family decided hospice would be most appropriate and in line with the patient's wishes given his clinical status / quality of life. Patient was managed with comfort measures and transferred to inpatient hospice. Followup: Mauricio Pollard MD [Primary Care Provider] - Time spent managing pt's care (in minutes): 45
[2024-03-17 17:49] VITALS: BP 158/91
== END 2024-03-17 20:00 | disposition expired | DRG 56 ==
LOC: ER 18:50 → ERHOLD 23:02 → 3RD-ICU 03-14 03:34 → 2ND 03-14 23:48 → OBSVTOIN 03-15 13:41
PROVIDERS: ADMIT Internal Medicine; ATTEND Hospitalist
DX: G30.9 Alzheimer's disease, unspecified (principal); R53.2 Functional quadriplegia; F02.811 Dementia in other diseases classified elsewhere, unspecified severity, with agitation; F05 Delirium due to known physiological condition; G93.49 Other encephalopathy; M10.9 Gout, unspecified; I10 Essential (primary) hypertension; E11.9 Type 2 diabetes mellitus without complications; E78.00 Pure hypercholesterolemia, unspecified; K21.9 Gastro-esophageal reflux disease without esophagitis; N40.0 Benign prostatic hyperplasia without lower urinary tract symptoms; R62.7 Adult failure to thrive; R29.6 Repeated falls; Z66 Do not resuscitate; Z51.5 Encounter for palliative care; Z91.81 History of falling; Z86.73 Personal history of transient ischemic attack (TIA), and cerebral infarction without residual deficits; Z68.26 Body mass index [BMI] 26.0-26.9, adult; Z79.82 Long term (current) use of aspirin; Z79.84 Long term (current) use of oral hypoglycemic drugs; Z79.02 Long term (current) use of antithrombotics/antiplatelets; Z79.890 Hormone replacement therapy; Z79.899 Other long term (current) drug therapy; Z85.828 Personal history of other malignant neoplasm of skin
CPT/HCPCS: 36415; 70450; 71045; 80048; 80053; 81003; 82947; 83735; 83880; 84484; 85025; 85027; 85610; 85730; 93005; 99285; G0378; J0360; J1650; J3486; J7030